=== PATIENT | male | born 1960 | race Caucasian/White ===

== ENCOUNTER → 2017-11-26 13:39 | Outpatient (POV) | payer BC, SELFPAY | PROVIDERS: Family Provider Family Medicine; PCP Family Medicine; Visit Provider Physician Assistant | DX: Z00.00 Encounter for general adult medical examination without abnormal findings (principal) ==

== ENCOUNTER → 2018-01-15 12:41 | Outpatient (CLI) | payer BC, SELFPAY ==
--- NOTE | 2018-01-15 12:56 | MR_ITS ---
MR knee RT wo con HISTORY: Acute pain of the right knee with buckling and with swelling ITS.REASON: ACUTE PAIN OF RIGHT KNEE ORDERING PHYSICIAN: Jim Snyder MD PATIENT AGE: 57 years COMPARISON: None TECHNIQUE: Standard multiplanar multiecho sequences are performed without contrast. FINDINGS: The cruciate ligaments and collateral ligaments are intact. Quadriceps tendon appears intact. There is some increased T1 and T2 signal within the patellar tendon consistent with tendinopathy/tendinosis. The central aspect of the posterior horn of medial meniscus is not identified in its normal location. What appears to represent part of the meniscus is noted centrally with a catheter between this part of meniscus and the remaining meniscus consistent with a complete longitudinal tear with meniscal displacement. Also be a small horizontal tear involving the body of the lateral meniscus There is intense increased T2 signal involving the proximal aspect of the medial tibial condyle subarticular region with a couple of linear areas of decreased intensity this patient's for bone bruise with nondisplaced impaction type fracture of the tibial plateau. There are moderate to severe osteoarthritic changes involving all 3 compartments with decrease in the joint spaces and osteophyte formation. There is mild lateral patellar subluxation. Patellar cartilage is thinned. There is a well-circumscribed of cortical 19 x 10 mm cystic lesion involving the distal femoral shaft could be due to cortical defect. Plain films suggested. Small knee joint effusion and there is mild amount of soft tissue edema about the knee. IMPRESSION: 1. Complex tear involves posterior horn of the medial meniscus suggesting a complete longitudinal tear with distraction of the meniscal fragments with the central aspect of the meniscus at the interspinous region of the proximal tibia 2. Nondisplaced horizontal tear involves the body of the lateral meniscus. 3. Bone bruise with minimal impaction involving the medial tibial condyle. 4. Tricompartmental osteoarthritis with knee joint effusion. 5. 19 x 10 mm cystic lesion of the distal femoral shaft anteriorly. Plain film correlation recommended
== END ==
PROVIDERS: Family Provider Family Medicine; PCP Family Medicine; Visit Provider Family Medicine
DX: M25.561 Pain in right knee (principal); M25.461 Effusion, right knee
CPT/HCPCS: 73721

== ENCOUNTER → 2018-01-28 14:36 | Outpatient (POV) | payer BC, SELFPAY | PROVIDERS: Visit Provider Physician Assistant | DX: Z00.00 Encounter for general adult medical examination without abnormal findings (principal) ==

== ENCOUNTER → 2018-04-04 14:31 | Outpatient (CLI) | payer BC, SELFPAY ==
[2018-04-04 17:34] LABS: Anion Gap 13.7 mEq/L (5-15); Blood Urea Nitrogen 29 mg/dL (7-18); Carbon Dioxide 27 mmol/L (21.0-32.0); Chloride 107 mmol/L (98-107); Creatinine,Serum 1.69 mg/dL (0.70-1.30); Estimated Glomerular Filt Rate 42 ml/min (>60); GFR (African American) 51 ML/MIN (>60); Glucose 81 mg/dL (74-106); Potassium 4.7 mmoL/L (3.5-5.1); Sodium 143 mmol/L (136-145)
== END ==
PROVIDERS: Visit Provider Internal Medicine Endocrinology, Diabetes & Metabolism
DX: L03.115 Cellulitis of right lower limb (principal); E11.9 Type 2 diabetes mellitus without complications; E11.29 Type 2 diabetes mellitus with other diabetic kidney complication; E78.2 Mixed hyperlipidemia; I10 Essential (primary) hypertension; Z79.4 Long term (current) use of insulin
CPT/HCPCS: 36415; 80048

== ENCOUNTER → 2018-06-20 09:46 | Outpatient (CLI) | payer BC, SELFPAY ==
[2018-06-20 11:30] LABS: Prostate Specific Ag, Diagnost 0.77 ng/mL (0.0-4.0)
== END ==
PROVIDERS: Visit Provider Urology
DX: Z12.5 Encounter for screening for malignant neoplasm of prostate (principal); N40.0 Benign prostatic hyperplasia without lower urinary tract symptoms
CPT/HCPCS: 36415; 84153

== ENCOUNTER → 2018-10-16 17:25 | Outpatient (CLI) | payer BC, SELFPAY | PROVIDERS: Visit Provider Podiatrist | DX: L60.8 Other nail disorders (principal); L03.031 Cellulitis of right toe; S91.209A Unspecified open wound of unspecified toe(s) with damage to nail, initial encounter | CPT/HCPCS: 87070; 87077; 87102; 87186; 87205; 87206; 87220 ==

== ENCOUNTER 2018-12-11 13:00 | Outpatient (RCR) | payer BC, SELFPAY ==
--- NOTE | 2018-10-02 10:56 | HMH.PTOPWND ---
Rehab Outpt Wound Evaluation Rehab OP Wound Evaluation Start: 10/02/18 10:51 Freq: Status: Active Protocol: Document 10/02/18 10:51 AB (Rec: 10/02/18 10:56 PHOBRENT [id number]) Electronically Signed By Van Duran, PT 10/02/18 10:51 Subjective/History History History Pt is 58 yowm who presents with c/o increased edema in gerald LE, Right > Left, x ~ 1 yr . He reports insidious onset of symptoms, but his edema was made worse after suffering a stress reaction in his right proximal tibia ~ 9 mos ago. He reports no c/o palpation tendernes, numbness, or tingling and only mild pain. He has hx of DM-II, HL. Lymphedema Eval Classification of Lymphedema Secondary Lymphedema Yes Stemmer's sign Stemmer's Sign no Stage of Lymphedema Lymphedema stages Stage I (Pitting edema, reduces w/ elevation, no fibrosis) Skin Changes Dry Skin Yes Redness Yes Discoloration of Skin Yes Pain Scale Pain Scale (0-10) 2 Affected Extremities Areas Affected by Lymphedema/Edema Right Lower Extremity Left Lower Extremity Manual Lymphatic Drainage Treatment Area MLD Treatment Area Right Lower Extremity Left Lower Extremity Wound Problems/Impairments Impairments Problems/Impairmments Impaired Walking Impaired Standing Increased Edema Lymphedema Present Wound Care Needs Subjective C/O Pain Impaired Self Care/Self Management Prognosis Rehab Potential Good Clinical Impression Consistent with Diagnosis Yes Short Term Goals Number of Weeks 4 Decrease Subjective C/O Pain Yes: 1/10 Patient to Understand Lymphedema Yes Treatment and Exercises Decrease Girth Measurments by (cm) Yes: by 5 cm Nursing Home Goals Number of Weeks 8 Decrease Subjective C/O Pain Yes: 0/10 Patient to be Ind w/ HEP Yes Patient to Adhere Lymphedema Precautions Yes Decrease Girth Measurments by (cm) Yes: by 15 cm Outpatient Therapy Plan of Care Treatment Plan May Include Therapeutic Exercise Including Home Yes Exercise Program Manual Therapy Techniques Yes
--- NOTE | 2018-11-19 14:42 | HMH.RHREAS ---
Rehab Reassessment Rehab OP Re-assessment Start: 11/19/18 14:37 Freq: Status: Active Protocol: Document 11/19/18 14:37 AB (Rec: 11/19/18 14:41 AB [id number]) Electronically Signed By Van Duran, PT 11/19/18 14:37 Rehab Re-assessment Subjective Subjective Pt reports no pain in gerald LE now, with less heaviness and improved ALD's. Objective Objective Notes Circumferential measurements: Right LE: -14.6 cm, Left LE: - 15.4 cm. Pain: 0/10. Assessment Progress Assessment Progressing as Expected Assessment Notes Much improved edema and pain. Patient goals met ST,2,3 LT Goals Not Met LT,3,4 Revised Goals none Plan Plan Continue per initial POC. Frequency of Therapy 2x/wk Duration of therapy 8 wks Time and Billing Re-Eval Time 15 Re-Eval Billing Units 1 PHYSICIAN CERTIFICATION: I certify the specified therapy services for Bill Dunn are required, authorized, and reviewed every 30 days.
== END 2018-12-11 13:35 | disposition home or self-care (01) ==
LOC: PT 13:00
PROVIDERS: Visit Provider Family Medicine
DX: I87.2 Venous insufficiency (chronic) (peripheral) (principal)
CPT/HCPCS: 97140; 97162; 97164; 97760

== ENCOUNTER → 2019-03-03 16:03 | Outpatient (CLI) | payer BC, SELFPAY ==
--- NOTE | 2019-03-03 16:32 | XR_ITS ---
XR chest 2V HISTORY: ITS.REASON: SEPSIS DUE TO UNSPECIFIED ORGANISM ORDERING PHYSICIAN: Ale Serna MD PATIENT AGE: 58 years Technique: PA and lateral chest COMPARISON: PA and lateral chest October 09, 2017 FINDINGS: Patchy vague low-density infiltrate left lung base and left mid lung, involving left lower lobe. Where there is also a normal subtle patchy infiltrate at the right lung base is well. This involves right lower lobe... And possibly minimal involvement at RML ( versus lingula) on lateral view. The right upper lung is clear. Heart is normal in size. Loyda and mediastinal structures satisfactory. No pleural effusion. No pneumothorax. Stable appearance T-spine. No acute findings. Anterior marginal osteophytes and degenerative changes throughout the T-spine. Ribs intact. Normal pulmonary vascularity. -----IMPRESSION:------- Bilateral infiltrates Low-density Patchy LLL infiltrate most evident left lung base extending towards left midlung. Suspect minimal patchy infiltrate right infrahilar region and right base as well ( involving mainly the right lower lobe possibly possible minimal RML involvement.)
== END ==
PROVIDERS: PCP Family Medicine; Visit Provider Emergency Medicine
DX: A41.9 Sepsis, unspecified organism (principal)
CPT/HCPCS: 36415; 71046; 83605; 87040

== ENCOUNTER → 2019-06-26 09:46 | Outpatient (CLI) | payer BC, SELFPAY ==
[2019-06-26 11:13] LABS: Prostate Specific Ag Screen 0.7 ng/mL (0.0-4.0)
== END ==
PROVIDERS: Visit Provider Urology
DX: R97.20 Elevated prostate specific antigen [PSA] (principal)
CPT/HCPCS: 36415; G0103

== ENCOUNTER → 2020-03-15 10:14 | Outpatient (CLI) | payer BC, SELFPAY ==
--- NOTE | 2020-03-15 10:23 | XR_ITS ---
PROCEDURE: XR RIBS RT MIN 3V W CXR1V CLINICAL INDICATION: RT SIDE CHEST PAIN Sided chest pain COMPARISON: CXR CHEST(2 VIEWS-NOT PORTABLE) from 10/09/2017 FINDINGS: Frontal view of the chest shows unremarkable cardiovascular structures. There is some patchy infiltrate in the right infrahilar region in the area of the right middle lobe. Multiple views of the right ribs shows no fracture, lytic, or blastic IMPRESSION: Change. Patchy infiltrate in the right middle lobe. Negative right ribs Dictated by: Corey Hdez MD 03/15/2020 13:46 Electronically signed by Corey Hdez MD in [place] 03/15/2020 13:46
== END ==
PROVIDERS: PCP Family Medicine; Visit Provider Family Medicine
DX: R07.9 Chest pain, unspecified (principal)
CPT/HCPCS: 71101

== ENCOUNTER → 2020-04-07 14:50 | Outpatient (CLI) | payer BC, SELFPAY ==
--- NOTE | 2020-04-07 14:56 | XR_ITS ---
PROCEDURE: XR CHEST CHP 1V CLINICAL HISTORY: COUGH,SOB COMPARISON: CXR CHEST(2 VIEWS-NOT PORTABLE) from 10/09/2017 XR RIBS RT MIN 3V W CXR1V from 03/15/2020 FINDINGS: The cardiomediastinal silhouette and pulmonary vascularity are within normal limits. The lungs are clear without infiltrates, suspicious nodules, or pleural effusions. No acute bony abnormalities. IMPRESSION: No acute findings. Dictated by: Corey Hdez MD 04/07/2020 15:57 Electronically signed by Corey Hdez MD in [place] 04/07/2020 15:57
[2020-04-07 15:30] LABS: Basophils # 0.1 K/mm3 (0-0.2); Basophils % 0.9 % (0.1-2.0); Eosinophils # 0.4 K/mm3 (0.0-0.4); Eosinophils % 3.6 % (0.1-12.0); Hematocrit 34.3 % (42.0-52.0); Hemoglobin 11.2 g/dL (14.1-18.0); Lymphocytes # 1.3 K/mm3 (0.7-4.5); Lymphocytes % 12.6 % (10-50); Mean Corpuscular HGB Conc 32.6 g/dL (31.8-35.4); Mean Corpuscular Volume 92.2 fl (80-94); Mean Platelet Volume 8.8 fl (7.4-10.4); Monocytes # 0.8 K/mm3 (0.1-1.0); Monocytes % 8.2 % (1.7-9.3); Neutrophils # 7.7 K/mm3 (1.8-7.8); Neutrophils % 74.7 % (37.0-80.0); Platelet Count 216 K/mm3 (142-424); Red Blood Count 3.72 M/mm3 (4.60-6.20); Red Cell Distribution Width 14.2 % (11.5-17.5); White Blood Count 10.3 K/mm3 (4.8-10.8)
[2020-04-09 16:18] LABS: Covid-19 Nasal PCR Sendout Lex NOT DETECTED
== END ==
PROVIDERS: PCP Physician Assistant; Visit Provider Physician Assistant
DX: Z03.818 Encounter for observation for suspected exposure to other biological agents ruled out (principal); J06.9 Acute upper respiratory infection, unspecified; R05 Cough; R06.02 Shortness of breath; R50.9 Fever, unspecified; R52 Pain, unspecified
CPT/HCPCS: 36415; 71010; 85025; U0004

== ENCOUNTER → 2020-06-23 10:38 | Outpatient (CLI) | payer OTHER, SELFPAY ==
[2020-06-23 12:13] LABS: Alanine Aminotransferase 21 U/L (12-78); Albumin Level 4.1 g/dl (3.5-5.0); Albumin/Globulin Ratio 1.5 (1.1-1.8); Alkaline Phosphatase 104 U/L (38-126); Anion Gap 12.6 mEq/L (5-15); Aspartate Amino Transferase 20 U/L (17-59); Bilirubin,Total 0.6 mg/dl (0.2-1.3); Blood Urea Nitrogen 26 mg/dl (9-20); Calcium 9.7 mg/dl (8.4-10.2); Carbon Dioxide 28 mmol/L (22.0-30.0); Chloride 105 mmol/L (98-107); Estimated Glomerular Filt Rate 62 ml/min (>60); GFR (African American) 75 ML/MIN (>60); Globulin 2.8 g/dL (1.3-3.2); Glucose 122 mg/dl (74-100); Potassium 5.6 mmoL/L (3.5-5.1); Sodium 140 mmol/L (136-145); Total Protein,Serum 6.9 g/dl (6.3-8.2)
== END ==
PROVIDERS: Visit Provider Nurse Practitioner
DX: B35.1 Tinea unguium (principal)
CPT/HCPCS: 36415; 80053

== ENCOUNTER → 2020-07-05 14:40 | Outpatient (CLI) | payer OTHER, SELFPAY ==
[2020-07-05 16:25] LABS: Prostate Specific Ag Screen 0.7 ng/ml (0.0-4.0)
== END ==
PROVIDERS: Visit Provider Urology
DX: Z12.5 Encounter for screening for malignant neoplasm of prostate (principal)
CPT/HCPCS: 36415; G0103

== ENCOUNTER → 2020-09-22 10:29 | Outpatient (CLI) | payer OTHER, SELFPAY ==
[2020-09-22 13:11] LABS: Bilirubin,Unconjugated 0.3 mg/dL (0.0-1.1)
[2020-09-22 13:12] LABS: Alanine Aminotransferase 18 U/L (12-78); Albumin Level 4.1 g/dl (3.5-5.0); Alkaline Phosphatase 74 U/L (38-126); Aspartate Amino Transferase 20 U/L (17-59); Bilirubin,Direct 0.2 mg/dl (0.0-0.4); Bilirubin,Indirect 0.3 mg/dL (0.0-0.9); Bilirubin,Total 0.5 mg/dl (0.2-1.3)
== END ==
PROVIDERS: Visit Provider Nurse Practitioner
DX: B35.1 Tinea unguium (principal); Z79.899 Other long term (current) drug therapy
CPT/HCPCS: 36415; 80076

== ENCOUNTER 2020-11-03 16:00 | Outpatient (RCR) | payer OTHER, SELFPAY ==
--- NOTE | 2020-09-28 11:25 | HMH.PTOPEV ---
PT Outpatient Evaluation Rehab PT Outpatient Evaluation Start: 09/28/20 11:13 Freq: Status: Active Protocol: Document 09/28/20 11:13 LISA (Rec: 09/28/20 11:25 RASHADSMITA [id number]) Electronically Signed By Fredrick Jasso, PT 09/28/20 11:13 Outpatient Therapy Subjective History Subjective History Patient is a 60 year old male presenting to outpatient PT with reports of L shoulder pain of insidious onset starting approximately 6 months ago. No recent imaging to reports S&S consistent with RTC impingement syndrome. Comorbidities include hx of diabetes, HTN and HL. Chief Complaint Pain,Stiff Symptom Type Ache Symptoms Relieved By Rest/Positioning,Prescription Meds Symptoms Aggravated By Physical Activity,Lifting Prior Functional Limitations None Current Functional Limitations Reaching,Lifting,Housework, Dressing,Sleeping Symptom Description Constant but Variable Level of pain today (0-10) 2 Pain scale - at its best (0-10) 2 Pain scale - at its worst (0-10) 5 Shoulder/Elbow Eval Shoulder Objective Measurements Palpation Tenderness Shoulder Palpation Findings Tenderness Shoulder Palpation Overall Comment ACJ distal supraspinatus insertion 2/4 Posture Shoulder Posture Sitting Position (L) Forward,(R) Forward Shoulder Posture Standing Position (L) Forward,(R) Forward Scapula Posture Sitting Position (L) Protracted,(R) Protracted Scapular Posture Standing Position (L) Protracted,(R) Protracted Shoulder ROM Right Shoulder Abduction Active Range of 158 Motion (degrees) Shoulder Flexion Active Range of Motion 155 (degrees) Query Text: Shoulder External Rotation Active Range WNL of Motion (degrees) Shoulder Internal Rotation Active Range WNL of Motion (degrees) Left Shoulder Abduction Active Range of 110 Motion (degrees) Shoulder Flexion Active Range of Motion 98 (degrees) Query Text: Shoulder External Rotation Active Range 73 of Motion (degrees) Shoulder Internal Rotation Active Range 50 of Motion (degrees) Shoulder MMT Anterior Deltoid Strength Grade 4- Good- Shoulder Abduction Strength Grade 4- Good- Shoulder Extension Strength Grade 4 Good Shoulder Flexion Strength Grade 4- Good- Shoulder External Rotation Strength 3 Fair Grade Shoulder Internal
== END 2020-11-03 16:05 | disposition home or self-care (01) ==
LOC: PT 16:00
PROVIDERS: PCP Nurse Practitioner Family; Visit Provider Nurse Practitioner Family
DX: M25.512 Pain in left shoulder (principal)
CPT/HCPCS: 97010; 97014; 97033; 97110; 97163; 97164; G0283

== ENCOUNTER → 2020-11-15 15:02 | Outpatient (CLI) | payer OTHER, SELFPAY ==
--- NOTE | 2020-11-15 15:07 | XR_ITS ---
PROCEDURE: XR CHEST PORTABLE CLINICAL HISTORY: COVID TESTING COMPARISON: CR CXR CHEST(2 VIEWS-NOT PORTABLE) from 10/09/2017 CR XR RIBS RT MIN 3V W CXR1V from 03/15/2020 CR XR CHEST CHP 1V from 04/07/2020 FINDINGS: The cardiomediastinal silhouette and pulmonary vascularity are within normal limits. The lungs are clear without infiltrates, suspicious nodules, or pleural effusions. No acute bony abnormalities. IMPRESSION: No acute findings. Dictated by: Corey Hdez MD 11/15/2020 15:25 Corey Hdez MD in [place] 11/15/2020 15:25
[2020-11-15 15:43] LABS: Basophils % 0.4 % (0.1-2.0); Eosinophils # 0.1 K/mm3 (0.0-0.4); Eosinophils % 0.5 % (0.1-12.0); Hemoglobin 12.4 g/dL (14.1-18.0); Lymphocytes # 1.1 K/mm3 (0.7-4.5); Lymphocytes % 9.9 % (10-50); Mean Corpuscular HGB Conc 31.8 g/dL (31.8-35.4); Mean Corpuscular Hemoglobin 29.9 pg (27.0-31.2); Mean Corpuscular Volume 93.8 fl (80-94); Monocytes # 0.8 K/mm3 (0.1-1.0); Monocytes % 7.4 % (1.7-9.3); Neutrophils % 81.7 % (37.0-80.0); Platelet Count 258 K/mm3 (142-424); Red Blood Count 4.15 M/mm3 (4.60-6.20); White Blood Count 11.1 K/mm3 (4.8-10.8)
--- NOTE | 2020-11-16 11:14 | PC.NURSE ---
Contacted pt to come in tomorrow at 11am for bam infusion. Pharmacy notified of appt time
== END ==
PROVIDERS: PCP Family Medicine; Visit Provider Family Medicine
DX: Z20.828 Contact with and (suspected) exposure to other viral communicable diseases (principal); U07.1 COVID-19
CPT/HCPCS: 36415; 71045; 85025; U0003

== ENCOUNTER 2020-11-17 10:55 | Outpatient (CLI) | payer OTHER, SELFPAY ==
[2020-11-17] VITALS (9 sets, daily range): BP systolic 140–177; BP diastolic 54–76; PULSE 76–84; RESP 22; TEMP 36.9; O2SAT 95–97
== END 2020-11-17 14:02 | disposition home or self-care (01) ==
PROVIDERS: PCP Family Medicine; Visit Provider Family Medicine
DX: U07.1 COVID-19 (principal)
CPT/HCPCS: 96365

== ENCOUNTER 2020-11-23 11:28 | Inpatient (IN) | payer OTHER, SELFPAY ==
[2020-11-23] VITALS (20 sets, daily range): BP systolic 98–173; BP diastolic 56–84; PULSE 80–107; RESP 24–32; TEMP 36.6–38.2; O2SAT 92–99; BMI 51.6; BMI 49.9
--- NOTE | 2020-11-23 11:30 | ECG_ITS ---
APPROVED REPORT Exam: Resting ECG HR:112 bpm ECG Measurements Heart Rate 112 AXES ME 126 P 59 QRSd 134 QRS -11 QT 342 T 1 QTc 466 Conclusion Sinus tachycardia Right bundle branch block Minimal voltage criteria for LVH, may be normal variant Abnormal ECG Electronically signed by : Finn Nagel, 11/25/2020 19:32:58
--- NOTE | 2020-11-23 11:33 | HMH.EDGENADL ---
ED Disposition Clinical Impression: Septic shock, COVID-19 virus infection, Hyperglycemia, Acute kidney injury, Hyperkalemia Pneumonia Qualifiers: Pneumonia type: due to unspecified organism Laterality: right Lung location: unspecified part of lung Qualified Code(s): J18.9 - Pneumonia, unspecified organism Disposition: Admitted As Inpatient Condition on Discharge: Critical - Critical Care Critical Care Time: Yes Attestation: On , the high probability of a clinically significant, sudden or life threatening deterioration of the following system(s) required my full and direct attention, intervention and personal management. The time I documented below is in addition to time spent performing reported procedures but includes the following listed in this critical care notation. Total Critical Care Time: 45 Vital system(s) involved:: Metabolic Failure, Respiratory Failure, Renal Failure, Shock (Septic) My critical care processes included: Assessment & monitoring of V/S, Initial and Re-exams, Data Review/Interpretation, Coordinating Care, Medication Orders and management, Documentation Medical Decision Making - Mason Inquiry Pt receiving controlled substance: No Vital Signs: 11/23/20 11:28 11/23/20 12:28 11/23/20 12:36 Temperature 98.2 F Temperature Source Oral Pulse Rate Pulse Rate [Right] 107 H 94 H 104 H Respiratory Rate 30 H 28 H Blood Pressure Blood Pressure [Right Arm] 98/57 L 143/70 H 143/70 H Blood Pressure Mean [Right Arm] 70 94 94 Blood Pressure Source Blood Pressure Source [Right Arm] Automatic Cuff Automatic Cuff Automatic Cuff Blood Pressure Position Blood Pressure Position [Right Arm] Sitting Supine Sitting 02 Sat by Pulse Oximetry 97 97 98 Oxygen Delivery Method Vapotherm Vapotherm Vapotherm 11/23/20 12:58 11/23/20 13:21 11/23/20 13:30 Temperature Temperature Source Pulse Rate Pulse Rate [Right] 94 H 103 H 94 H Respiratory Rate 28 H Blood Pressure Blood Pressure [Right Arm] 151/72 H 134/74 134/64 Blood Pressure Mean [Right Arm] 98 94 87 Blood Pressure Source Blood Pressure Source [Right Arm] Automatic Cuff Automatic Cuff Automatic Cuff Blood Pressure Position Blood Pressure Position [Right Arm] Sitting Sitting Sitting 02 Sat by Pulse Oximetry 98 97 98 Oxygen Delivery Method Vapotherm Vapotherm Vapotherm 11/23/20 14:00 11/23/20 14:20 11/23/20 14:47 Temperature Temperature Source Pulse Rate Pulse Rate [Right] 99 H 92 H 90 Respiratory Rate 26 H Blood Pressure Blood Pressure [Right Arm] 131/67 131/67 124/58 L Blood Pressure Mean [Right Arm] 88 88 80 Blood Pressure Source Blood Pressure Source [Right Arm] Automatic Cuff Automatic Cuff Automatic Cuff Blood Pressure Position Blood Pressure Position [Right Arm] Sitting Sitting Sitting 02 Sat by Pulse Oximetry 98 97 97 Oxygen Delivery Method Vapotherm Vapotherm Vapotherm 11/23/20 15:13 11/23/20 15:30 11/23/20 16:00 Temperature Temperature Source Pulse Rate Pulse Rate [Right] 88 89 88 Respiratory Rate 26 H Blood Pressure Blood Pressure [Right Arm] 146/61 H 139/66 130/56 L Blood Pressure Mean [Right Arm] 89 90 80 Blood Pressure Source Blood Pressure Source [Right Arm] Automatic Cuff Automatic Cuff Automatic Cuff Blood Pressure Position Blood Pressure Position [Right Arm] Sitting Sitting Sitting 02 Sat by Pulse Oximetry 99 92 L 98 Oxygen Delivery Method Vapotherm Vapotherm Vapotherm 11/23/20 16:29 11/23/20 16:30 11/23/20 17:18 Temperature 98 F Temperature Source Pulse Rate 87 Pulse Rate [Right] 87 88 Respiratory Rate 26 H 26 H Blood Pressure 152/72 H Blood Pressure [Right Arm] 145/71 H 145/71 H Blood Pressure Mean [Right Arm] 95 95 Blood Pressure Source Automatic Cuff Blood Pressure Source [Right Arm] Automatic Cuff Automatic Cuff Blood Pressure Position Sitting Blood Pressure Position [Right Arm] Sitting Sitting 02 Sat by Pulse Oximetry
--- NOTE | 2020-11-23 11:44 | XR_ITS ---
PROCEDURE: XR CHEST PORTABLE CLINICAL HISTORY: hypoxia COMPARISON: CR XR RIBS RT MIN 3V W CXR1V from 03/15/2020 CR XR CHEST CHP 1V from 04/07/2020 CR XR CHEST PORTABLE from 11/15/2020 FINDINGS: The cardiomediastinal silhouette and pulmonary vascularity are within normal limits. Diffuse increased density in the right upper and right lower lobe consistent with pneumonia. No large effusion evident. No acute bony abnormalities. IMPRESSION: Right upper and right lower lobe pneumonia Dictated by: Corey Hdez MD 11/23/2020 12:50 Corey Hdez MD in [place] 11/23/2020 12:50
--- NOTE | 2020-11-23 11:44 | PC.NURSE ---
pt sats continue to drop into 80's with venturi at 50%. Pt switched to vapotherm at 40lpm at 100%. Pt sats 98%. Pt behind closed doors and isolation procedures in place. Door closed and isolation sign in place
[2020-11-23 11:54] LABS: Basophils # 0.2 K/mm3 (0-0.2); Basophils % 0.5 % (0.1-2.0); Hematocrit 40.2 % (42.0-52.0); Hemoglobin 11.9 g/dL (14.1-18.0); Lymphocytes # 0.9 K/mm3 (0.7-4.5); Lymphocytes % 2.4 % (10-50); Mean Corpuscular HGB Conc 29.7 g/dL (31.8-35.4); Mean Corpuscular Hemoglobin 29.5 pg (27.0-31.2); Mean Corpuscular Volume 99.2 fl (80-94); Mean Platelet Volume 8.6 fl (7.4-10.4); Monocytes # 1.2 K/mm3 (0.1-1.0); Monocytes % 3.3 % (1.7-9.3); Neutrophils # 33.1 K/mm3 (1.8-7.8); Neutrophils % 93.7 % (37.0-80.0); Platelet Count 410 K/mm3 (142-424); Red Blood Count 4.05 M/mm3 (4.60-6.20); Red Cell Distribution Width 14.6 % (11.5-17.5); White Blood Count 35.3 K/mm3 (4.8-10.8)
[2020-11-23 11:55] LABS: Chloride 104 mmol/L (98-107)
[2020-11-23 11:56] LABS: Potassium 5.7 mmoL/L (3.5-5.1); Sodium 138 mmol/L (136-145)
[2020-11-23 11:58] LABS: Alanine Aminotransferase 63 U/L (12-78); Alkaline Phosphatase 127 U/L (38-126); Bilirubin,Total 0.7 mg/dl (0.2-1.3); Blood Urea Nitrogen 73 mg/dl (9-20); Creatinine Clearance Estimated 35 mL/min (50-200); Estimated Glomerular Filt Rate 29 ml/min (>60); GFR (African American) 35 ML/MIN (>60)
[2020-11-23 11:59] LABS: Albumin Level 3.9 g/dl (3.5-5.0); Anion Gap 24.7 mEq/L (5-15); Calcium 9.7 mg/dl (8.4-10.2); Carbon Dioxide 15 mmol/L (22.0-30.0); Globulin 3.9 g/dL (1.3-3.2); Total Protein,Serum 7.8 g/dl (6.3-8.2)
[2020-11-23 12:01] LABS: Glucose 474 mg/dl (74-100); MANUAL DIFFERENTIAL MANUAL DIFFERENTIAL (MANUAL DIFF)
[2020-11-23 12:02] LABS: Lactic Acid 7.9 mmol/L (0.7-2.1)
--- NOTE | 2020-11-23 12:04 | PC.NURSE ---
notified ER MD of critical glucose and lactic acid, no new orders at this, will continue to monitor
[2020-11-23 12:06] LABS: Aspartate Amino Transferase 51 U/L (17-59)
[2020-11-23 12:11] LABS: Troponin I 0.53 ng/ml (0.00-0.034)
--- NOTE | 2020-11-23 12:21 | PC.NURSE ---
Notified MD of critical troponin. Chest x-ray reviewed by MD and he ordered sepsis bolus at this time. 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
--- NOTE | 2020-11-23 12:26 | PC.NURSE ---
speaking with DR. Snyder at this time who is present in the ED
[2020-11-23 12:47] LABS: Microscopic, Urine URINE MICROSCOPIC (MICROSCOPIC)
--- NOTE | 2020-11-23 12:48 | PC.NURSE ---
Dr. Snyder at bedside
[2020-11-23 12:51] LABS: Appearance,Urine CLEAR (Clear); Bilirubin,Urine Negative (Negative); Blood, Urine TRACE-I (Negative); Color,Urine YELLOW (Yellow); Glucose,Urine (UA) Negative (Negative); Ketones,Urine Negative (Negative); Leukocyte Esterase,Urine Negative (Negative); Nitrate,Urine Negative (Negative); Protein,Urine 1+ (Negative); Specific Gravity, Urine 1.025 (1.005-1.030); Urobilinogen,Urine 0.2 EU/dl (0.2)
[2020-11-23 12:52] LABS: Acetone, Serum (Rapid) None Detected (None Detect)
[2020-11-23 12:57] LABS: Eosinophils % 2 % (0-3); Lymphocytes % 12 % (10-50); Monocytes % 3 % (2-9); Neutrophils % 81 % (42-76); Platelet Estimate Normal; RBC Morphology Normal; Total Cells Counted 100
--- NOTE | 2020-11-23 12:58 | PC.NURSE ---
Notified care management of admission
[2020-11-23 13:09] LABS: ABG PCO2 29.4 mmhg (35.0-45.0); ABG PH 7.33 mmol/L (7.35-7.45)
[2020-11-23 13:10] LABS: ABG Base Excess -9.5 mmol/L (-2.4-2.3); ABG HCO3 15.2 mmhg (22.0-26.0); ABG Oxygen Saturation 95 % (90-100); ABG PO2 84.3 mmhg (80-100); ABG TCO2 16.1 mmhg (23-27); Oxygen 100% VAPOTHERM %; Source Left Radial
[2020-11-23 13:11] LABS: Squamous Epithelial Cell,Urine Occasional #/hpf (0-5)
[2020-11-23 13:24] LABS: Procalcitonin 0.485 ng/mL (0.0-2.0)
--- NOTE | 2020-11-23 14:01 | PC.NURSE ---
per general warehouse worker pt will be going to room 263, states that room is currently still occupied but they are trying to move that pt.
--- NOTE | 2020-11-23 14:04 | HMH.HP ---
*Admission Date: 11/23/20 *Chief complaint: Syncope and COVID-19 *History of present illness: This 60-year-old white male diabetic was brought to the emergency room after a syncopal episode. He was seen in the office of [facility] on November 15, 2020 and tested positive for COVID-19. He received dexamethasone and Levaquin. He also received Bablinivimab by infusion as an outpatient. He has continued to be symptomatic with cough congestion and shortness of breath. The following is from the emergency room narrative: Patient is brought in by ambulance. They were called because he fell and needed assistance. He initially refused to be brought in, but was found to be markedly hypoxic and cyanotic on room air with a pulse ox in the 60s. He also reports to me that he might have been syncopal when he fell. He says he blacked out . He denies any injury. He was placed on nonrebreather oxygen and color improved. He is a type II diabetic and takes Actos 45 mg daily, Glucophage at 1000 mg twice daily, Amaryl 4 mg daily, Levemir FlexPen 40 units subcu once daily, and Trulicity 0.75 mg subcutaneously once a week. [facility] History Medical History: Reports:: Diabetes Mellitus Type 2, Hyperlipidemia, Hypertension, Kidney Stones (2003), Tuberculosis *Have you ever received a pneumonia vaccine?: Yes *Have you received a flu vaccine this season?: Yes Other Medical History: Reports: Sinus Problems Laterality Cases: Bilateral: Cataract, Tonsillectomy Other Surgeries: Yes: Colonoscopy Amputation: No Fractures: No - *Social History Smoking Status: Never smoker Alcohol Intake: never Substance Use Type: denies use *Occupational Status:: employed *Travel in the last 8 weeks: None Family Hx:: Diabetes, Cancer, Stroke, Heart Attack, Hyperlipidemia, Hypertension Review of Systems - Constitutional Reports fatigue, Reports weakness, Denies fever(s) - Eyes Denies change in vision - ENT Reports dizziness - *Cardiovascular Reports shortness of breath - *Respiratory Reports chest congestion, Reports cough, Reports shortness of breath - *Gastrointestinal Reports constipation - *Genitourinary Denies difficulty urinating - *Musculoskeletal Reports muscle weakness - *Neurologic Reports weakness, Denies localized weakness, Denies headache(s) Meds Home Medications Medication Instructions Recorded Confirmed Type atorvastatin 80 mg tablet 80 mg PO DAILY 90 Days tab 06/20/18 11/23/20 History ezetimibe 10 mg tablet 10 mg PO DAILY 90 Days tab 06/20/18 11/23/20 History glimepiride 4 mg tablet 4 mg PO DAILY 90 Days tab 06/20/18 11/23/20 History hydrochlorothiazide 12.5 mg tablet 12.5 mg PO DAILY 30 Days tab 06/20/18 11/23/20 History metformin 1,000 mg tablet 1,000 mg PO DAILY 90 Days tab 06/20/18 11/23/20 History metolazone 2.5 mg tablet 2.5 mg PO QODHS 30 Days tab 06/20/18 11/23/20 History pioglitazone 45 mg tablet 45 mg PO DAILY 90 Days tab 06/20/18 11/23/20 History quinapril 40 mg tablet 40 mg PO DAILY 90 Days tab 06/20/18 11/23/20 History tamsulosin 0.4 mg capsule 0.4 mg PO DAILY 90 Days #90 06/20/18 11/23/20 History aspirin 81 mg tablet,delayed 81 mg PO DAILY 10/16/18 11/23/20 History release dulaglutide 1.5 mg/0.5 mL 1.5 mg SUB-Q WEEKLY 90 Days ml 04/01/20 11/23/20 History subcutaneous pen injector fluticasone propionate 50 50 mcg INTRANASAL DAILY 04/01/20 11/23/20 History mcg/actuation nasal spray,suspension insulin detemir U-100 100 unit/mL 55 unit SUB-Q DAILY 89 Days ml 04/01/20 11/23/20 History (3 mL) subcutaneous pen albuterol sulfate 90 mcg/actuation 90 g INHALATION DAILY 06/23/20 11/23/20 History aerosol inhaler levoFLOXacin [Levaquin 500mg 500 mg PO DAILY 11/17/20 11/23/20 History tab] terbinafine HCL [Terbinafine HCl] 250 mg PO DAILY 11/17/20 11/23/20 History Naproxen [Naproxen 500mg tab] 500 mg PO BID 11/23/20 11/23/20 History dexAMETHasone [Decadron] 6 mg PO DAILY 11/23/20 11/23/20 H
--- NOTE | 2020-11-23 15:00 | PC.NURSE ---
Called to check status of bed and they advised they were cleaning the room at this time
--- NOTE | 2020-11-23 15:14 | PC.NURSE ---
Pt sleeping at this time. Breathing has eased. waiting on bed in [facility].
--- NOTE | 2020-11-23 15:18 | PC.NURSE ---
Called to bedside by ER staff. Pt on Non-rebreather SPO2 100%, per Dr. Dupree wean O2 to maintain <92%. Placed pt on NC 5 LPM, SPO2 85%. Placed Pt on Venti mask 50%, SPO2 88%. Placed Pt on Vapotherm 40L 100%, SPO2 97%. ABG attempt unsuccessful Left radial artery prepped and cleaned, Allens test acceptable, no sample obtained, pressure held, no bleeding, pressure bandage applied. Called Front Desk Receptionist for next attempt.
[2020-11-23 15:51] LABS: Reflex Lactic Add Lactic Reflex
--- NOTE | 2020-11-23 17:40 | PC.NURSE ---
pt just arrived to the floor
--- NOTE | 2020-11-23 17:49 | PC.NURSE ---
notified by lab that they need a lactic on patient, lactic collected and lab notified
--- NOTE | 2020-11-23 19:01 | PC.NURSE ---
Elsa aware of Dr John ahuja
[2020-11-23 19:55] LABS: Reflex Lactic (2 hrs) Add Lactic Reflex
[2020-11-23 20:26] LABS: POC Glucose,Bedside 346 (70-110)
[2020-11-23 21:01] LABS: Lactic Acid Follow up (RFLX 2) 1.4 mmol/L (0.7-2.1)
[2020-11-24] VITALS (15 sets, daily range): BP systolic 135–199; BP diastolic 73–90; PULSE 70–92; RESP 18–32; TEMP 36.5–37.2; O2SAT 85–96; BMI 50.1; BMI 49.8
--- NOTE | 2020-11-24 04:58 | PC.NURSE ---
pt has slept through most of shift. no complaints voiced. el draining clear yellow urine. pt temp was elevated at beginning of shift and prn Tylenol given. iv patent and infusing per order. vapotherm currently at 40L and 100% FIO2. o2 sat are 97% at this time. call light in reach. will continue to monitor
[2020-11-24 05:52] LABS: POC Glucose,Bedside 168 (70-110)
[2020-11-24 06:32] LABS: Basophils # 0.1 K/mm3 (0-0.2); Basophils % 0.2 % (0.1-2.0); Eosinophils % 0.1 % (0.1-12.0); Hematocrit 33.8 % (42.0-52.0); Lymphocytes # 0.7 K/mm3 (0.7-4.5); Lymphocytes % 2.4 % (10-50); Mean Corpuscular HGB Conc 30.8 g/dL (31.8-35.4); Mean Corpuscular Hemoglobin 30.3 pg (27.0-31.2); Mean Corpuscular Volume 98.3 fl (80-94); Mean Platelet Volume 9.2 fl (7.4-10.4); Monocytes # 0.8 K/mm3 (0.1-1.0); Monocytes % 2.8 % (1.7-9.3); Neutrophils # 27.4 K/mm3 (1.8-7.8); Neutrophils % 94.5 % (37.0-80.0); Platelet Count 301 K/mm3 (142-424); Red Blood Count 3.44 M/mm3 (4.60-6.20); Red Cell Distribution Width 14.7 % (11.5-17.5)
[2020-11-24 06:43] LABS: POC Glucose,Bedside 403 (70-110)
[2020-11-24 06:47] LABS: Anion Gap 13.7 mEq/L (5-15); Blood Urea Nitrogen 73 mg/dl (9-20); Carbon Dioxide 22 mmol/L (22.0-30.0); Chloride 109 mmol/L (98-107); Creatinine Clearance Estimated 51 mL/min (50-200); Estimated Glomerular Filt Rate 44 ml/min (>60); GFR (African American) 54 ML/MIN (>60); Glucose 184 mg/dl (74-100); Potassium 5.7 mmoL/L (3.5-5.1); Sodium 139 mmol/L (136-145)
[2020-11-24 07:02] LABS: Calcium 8.7 mg/dl (8.4-10.2)
[2020-11-24 07:07] LABS: MANUAL DIFFERENTIAL MANUAL DIFFERENTIAL (MANUAL DIFF)
--- NOTE | 2020-11-24 07:56 | HMH.ACPN2 ---
Internal Medicine - PN: Subj *Date: 11/24/20 *Time: 07:56 Interval history: Patient states he is doing okay. Nurses state that his O2 sats are stable on the Vapotherm at 100%. Per nursing notes he slept through most of the night. He continues with a Malik catheter to bedside drainage. Laboratory data this morning: white blood cell count was 29,000; blood chemistries show sodium of 139 potassium of 5.7. BUN is 73 and creatinine is 1.6. He continues on Zithromax and Rocephin. He is also receiving remdesivir IV fluids are at 100 an hour. Exam Vital signs and Labs for Last 24 Hours: Temp Pulse Resp BP Pulse Ox 98.7 F 70 27 H 158/75 H 97 11/24/20 06:00 11/24/20 06:00 11/24/20 06:00 11/24/20 06:00 11/23/20 22:00 Laboratory Results - last 24 hr 11/23/20 11:35: WBC 35.3 H*, RBC 4.05 L, Hgb 11.9 L, Hct 40.2 L, MCV 99.2 H, MCH 29.5, MCHC 29.7 L, RDW 14.6, Plt Count 410, MPV 8.6, Neut % (Auto) 93.7 H, Lymph % (Auto) 2.4 L, [facility] % (Auto) 3.3, Eos % (Auto) 0.0 L, Baso % (Auto) 0.5, Neut # (Auto) 33.1 H, Lymph # (Auto) 0.9, [facility] # (Auto) 1.2 H, Eos # (Auto) 0.0, Baso # (Auto) 0.2, Total Counted 100, Neutrophils % (Manual) 81 H, Lymphocytes % (Manual) 12, Monocytes % (Manual) 3, Eosinophils % (Manual) 2, Basophils % (Manual) 2.0 H, Platelet Estimate Normal, RBC Morphology Normal 11/23/20 11:35: Sodium 138, Potassium 5.7 H, Chloride 104, Carbon Dioxide 15 L, Anion Gap 24.7 H, BUN 73 H, Creatinine 2.30 H, Estimated Creat Clear 35, Estimated GFR 29 L, Est GFR ( Amer) 35 L, Glucose 474 H*, Calcium 9.7, Total Bilirubin 0.7, AST 51, ALT 63, Alkaline Phosphatase 127 H, Troponin I 0.53 H, Total Protein 7.8, Albumin 3.9, Globulin 3.9 H, Albumin/Globulin Ratio 1.0 L 11/23/20 11:35: Lactate 7.9 H 11/23/20 11:35: Procalcitonin 0.485 11/23/20 11:35: Acetone Level None detected 11/23/20 11:44: Specimen Source Cancelled, O2 % Cancelled, ABG pH Cancelled, ABG pCO2 Cancelled, ABG pO2 Cancelled, ABG HCO3 Cancelled, ABG Total CO2 Cancelled, ABG O2 Saturation Cancelled, ABG Base Excess Cancelled, Corey Test Cancelled, Vent Rate Cancelled, Tidal Volume Cancelled, PEEP Cancelled 11/23/20 12:15: Specimen Source Left radial, O2 % 100% vapotherm, ABG pH 7.33 L, ABG pCO2 29.4 L, ABG pO2 84.3, ABG HCO3 15.2 L, ABG Total CO2 16.1 L, ABG O2 Saturation 95, ABG Base Excess -9.5 L 11/23/20 12:25: Urine Color Yellow, Urine Appearance Clear, Urine pH 5.0, Ur Specific [place] 1.025, Urine Protein 1+, Urine Glucose (UA) Negative, Urine Ketones Negative, Urine Blood Trace-i, Urine Nitrate Negative, Urine Bilirubin Negative, Urine Urobilinogen 0.2, Ur Leukocyte Esterase Negative, Urine RBC 3-5, Urine WBC 3-5, Ur Squamous Epith Cells Occasional 11/23/20 17:45: Lactate 4.0 H 11/23/20 18:54: POC Glucose 403 H* 11/23/20 20:00: Lactate 1.4 11/23/20 20:12: POC Glucose 346 H* 11/24/20 05:15: POC Glucose 168 H 11/24/20 05:55: WBC 29.0 H*, RBC 3.44 L, Hct 33.8 L, MCV 98.3 H, MCH 30.3, MCHC 30.8 L, RDW 14.7, Plt Count 301 D, MPV 9.2, Neut % (Auto) 94.5 H, Lymph % (Auto) 2.4 L, [facility] % (Auto) 2.8, Eos % (Auto) 0.1, Baso % (Auto) 0.2, Neut # (Auto) 27.4 H, Lymph # (Auto) 0.7, [facility] # (Auto) 0.8, Eos # (Auto) 0.0, Baso # (Auto) 0.1 11/24/20 05:55: Sodium 139, Potassium 5.7 H, Chloride 109 H, Carbon Dioxide 22 D, Anion Gap 13.7, BUN 73 H, Creatinine 1.60 H D, Estimated Creat Clear 51, Estimated GFR 44 L, Est GFR ( Amer) 54 L D, Glucose 184 H D, Calcium 8.7 D I & O for Last 24 hours: Intake & Output 11/21/20 11/22/20 11/23/20 11/24/20 11:59 11:59 11:59 11:59 Intake Total 1376 / 1376 Output Total 1450 / 1450 Balance -74 / -74 Weight 360 lb 349 lb 5 oz - Constitutional no acute distress Comments: Awakened for exam. He states he is comfortable. - *Routine Respiratory Exam Present: rhonchi (Bilateral) - *Routine Cardiovascular Exam Present: RRR - *Routine Abdominal Exam Present: soft, normoactive bowel sounds, tenderness - *Routine Exam Comm
[2020-11-24 09:01] LABS: Lymphocytes % 5 % (10-50); Monocytes % 4 % (2-9); Neutrophils % 91 % (42-76); Platelet Estimate Normal; RBC Morphology Normal; Total Cells Counted 100
[2020-11-24 10:00] LABS: Hemoglobin 10.4 g/dL (14.1-18.0)
[2020-11-24 12:09] LABS: POC Glucose,Bedside 209 (70-110)
--- NOTE | 2020-11-24 12:26 | HMH.PULMCON ---
*Admission Date: 11/23/20 *Reason for consult:: Acute hypoxic respiratory failure, COVID-19 pneumonia *History of present illness: Mr. Wright is a 60-year-old obese male with history of diabetes, no prior respiratory complaints recently tested positive for COVID-19 pneumonia and received dexamethasone and levofloxacin as an outpatient basis presented with worsening respiratory failure along with cough and productive phlegm and pulmonary was called for further management. [facility] History Medical History: Reports:: Diabetes Mellitus Type 2, Hyperlipidemia, Hypertension, Kidney Stones (2003), Tuberculosis *Have you ever received a pneumonia vaccine?: Yes *Have you received a flu vaccine this season?: Yes Other Medical History: Reports: Sinus Problems Laterality Cases: Bilateral: Cataract, Tonsillectomy Other Surgeries: Yes: No Previous Surgery, Colonoscopy Amputation: No Fractures: No - *Social History Smoking Status: Never smoker Alcohol Intake: never Substance Use Type: denies use *Occupational Status:: retired Housing: house Household Members: none *Travel in the last 8 weeks: None Family Hx:: Diabetes, Cancer, Stroke, Heart Attack, Hyperlipidemia, Hypertension ROS - Review of Systems Review of systems:: pertinent systems reviewed and negative unless documented below - Cons Reports anorexia, Reports body ache(s), Reports chills, Reports fever(s) - Card Reports shortness of breath, Reports leg swelling - Resp Respiratory: Reports chest congestion, Reports cough, Reports dyspnea, Reports dyspnea on exertion, Reports excessive phlegm production, Denies coughing up blood, Denies pain on inspiration, Denies pain with cough, Reports cough with sputum production - GI Gastrointestingal: Reports: system reviewed and no additional complaints, except as docu Meds Home Medications Medication Instructions Recorded Confirmed Type atorvastatin 80 mg tablet 80 mg PO DAILY 90 Days tab 06/20/18 11/23/20 History ezetimibe 10 mg tablet 10 mg PO DAILY 90 Days tab 06/20/18 11/23/20 History glimepiride 4 mg tablet 4 mg PO DAILY 90 Days tab 06/20/18 11/23/20 History hydrochlorothiazide 12.5 mg tablet 12.5 mg PO DAILY 30 Days tab 06/20/18 11/23/20 History metformin 1,000 mg tablet 1,000 mg PO DAILY 90 Days tab 06/20/18 11/23/20 History metolazone 2.5 mg tablet 2.5 mg PO QODHS 30 Days tab 06/20/18 11/23/20 History pioglitazone 45 mg tablet 45 mg PO DAILY 90 Days tab 06/20/18 11/23/20 History quinapril 40 mg tablet 40 mg PO DAILY 90 Days tab 06/20/18 11/23/20 History tamsulosin 0.4 mg capsule 0.4 mg PO DAILY 90 Days #90 06/20/18 11/23/20 History aspirin 81 mg tablet,delayed 81 mg PO DAILY 10/16/18 11/23/20 History release dulaglutide 1.5 mg/0.5 mL 1.5 mg SUB-Q WEEKLY 90 Days ml 04/01/20 11/23/20 History subcutaneous pen injector fluticasone propionate 50 50 mcg INTRANASAL DAILY 04/01/20 11/23/20 History mcg/actuation nasal spray,suspension insulin detemir U-100 100 unit/mL 55 unit SUB-Q DAILY 89 Days ml 04/01/20 11/23/20 History (3 mL) subcutaneous pen albuterol sulfate 90 mcg/actuation 90 g INHALATION DAILY 06/23/20 11/23/20 History aerosol inhaler levoFLOXacin [Levaquin 500mg 500 mg PO DAILY 11/17/20 11/23/20 History tab] terbinafine HCL [Terbinafine HCl] 250 mg PO DAILY 11/17/20 11/23/20 History Naproxen [Naproxen 500mg tab] 500 mg PO BID 11/23/20 11/23/20 History dexAMETHasone [Decadron] 6 mg PO DAILY 11/23/20 11/23/20 History Allergies Allergy/AdvReac Type Severity Reaction Status Date / Time No Known Allergies Allergy Verified 09/22/20 08:59 Exam - Constitutional Comment:: Patient appears to be in mild respiratory distress. On high flow nasal cannula at 40 L 100% - HENMT Exam HENMT: normocephalic, atraumatic - Eye Exam Eyes:: eyelids normal, normal conjunctiva - Neck Exam Neck:: thyroid normal, no lymphadenopathy - Respiratory Exam Respiratory:: able to speak in complete
--- NOTE | 2020-11-24 12:31 | HMH.PHAVTE ---
[facility] Pharmacy VTE Monitoring - Patient Demographics Admission date: 11/23/20 Report Date: 11/24/20 Time: 12:31 Allergies/Adverse Reactions: Patient Allergies No Known Allergies Allergy (Verified 09/22/20 08:59) Height: 1.78 m Weight: 158.445 kg Patient Problems: Current Active Problems COVID-19 (Acute) Pneumonia involving right lung (Acute) Morbid obesity (Acute) Sepsis (Acute) Sepsis associated hypotension (Acute) History of tuberculosis (Acute) Septic shock (Acute) Pneumonia (Acute) COVID-19 virus infection (Acute) Hyperglycemia (Acute) Acute kidney injury (Acute) Hyperkalemia (Acute) Edema of lower extremity (Acute) - VTE Risk Labs: VTE Related Lab Results Hgb 10.4 g/dL (14.1-18.0) L D 11/24/20 05:55 Hct 33.8 % (42.0-52.0) L 11/24/20 05:55 Plt Count 301 K/mm3 (142-424) D 11/24/20 05:55 BUN 73 mg/dl (9-20) H 11/24/20 05:55 Creatinine 1.60 mg/dl (0.66-1.25) H D 11/24/20 05:55 Estimated Creat Clear 51 mL/min (50-200) 11/24/20 05:55 Was VTE Risk Assessment Performed: Yes VTE Score: 5 VTE Risk Level: Low Risk - Prophylaxis VTE Prophylaxis Ordered?: Yes Types of VTE Prophylaxis: TEDS Knee High, Pharmacological Location of Applied Device: Bilateral Lower Extremeties Pharmacologic Type: Enoxaparin
--- NOTE | 2020-11-24 13:35 | ECG_ITS ---
APPROVED REPORT Exam: Resting ECG HR:155 bpm ECG Measurements Heart Rate 155 AXES QRSd 132 QRS -7 QT 294 T -11 QTc 472 Conclusion Atrial fibrillation with rapid ventricular response Right bundle branch block Minimal voltage criteria for LVH, may be normal variant Abnormal ECG Electronically signed by : Finn Nagel, 11/25/2020 19:28:08
--- NOTE | 2020-11-24 13:37 | CA_ITS ---
APPROVED REPORT EXAM: Comprehensive 2D, Doppler, and color-flow Echocardiogram Financial Compliance Officer: Cecy Bucio RT(R) Ht: 5 ft 10 in Wt: 349lbs BSA: 2.64 BP: 134/64 mmHg Indications: Syncope, HTN, DM, Hyperlipidemia, resp failure, Hx of TB, sepsis, AFIB, COVID, pneumonia, morbid obesity 2D Dimensions LVOT 2.71 cm (M/F) 1.5-2.5 M-Mode Dimensions RVDd 3.18 cm (0.9-2.6) LVDd 3.59 cm (3.5-5.7) LVDs 2.62 cm (3.5-5.7) IVSd 1.54 cm (0.6-1.1) PWd 1.28 cm (0.6-1.1) EF (Teich) 53.60% FS 27.00% EDV (Teich) 54.10 mL ESV (Teich) 25.10 mL Left Ventricle Technically very difficult study, endocardial surfaces are poorly visualized. Left atrium is mildly enlarged, left ventricle is normal size, mild concentric left ventricular hypertrophy, visually estimated ejection fraction of 50% with no obvious regional wall motion abnormality, diastolic parameters are inconclusive. Right Ventricle Right atrium and right ventricle are mildly enlarged with normal contractility. Aortic Valve Aortic valve is thickened and calcified without significant aortic stenosis or aortic insufficiency. Mitral Valve Mitral valve grossly normal, there is mild mitral regurgitation. Tricuspid Valve Tricuspid valve is grossly normal, there is mild tricuspid regurgitation, tricuspid regurgitation jet velocity is inadequate for calculation of the right ventricular systolic pressure. Pulmonic Valve Pulmonic valve is poorly visualized. Great Vessels Aortic root is normal size. Pericardium No significant pericardial effusion noted. Conclusion 1. Mildly enlarged left atrium, normal left ventricular size, mild concentric left ventricular hypertrophy, visually estimated ejection fraction 50% with no regional wall motion abnormality, diastolic parameters are inconclusive. Technically difficult study, endocardial surfaces are very poorly visualized. 2. Mildly enlarged right ventricle with normal contractility. 3. Thickened and calcified aortic valve without aortic stenosis or aortic insufficiency. 4. Mild mitral and tricuspid regurgitation. 5. No significant pericardial effusion noted. Electronically signed by : Kyle Guerra, 11/26/2020 10:47:21
--- NOTE | 2020-11-24 13:54 | HMH.CNCARD ---
History of Present Illness Consult date: 11/24/20 Requesting physician: Jim Snyder Consult reason: atrial fibrillation Chief complaint: soa History of present illness: This is a 60-year-old white gentleman who presented to the emergency department after a syncopal episode and was found to be markedly hypoxic and cyanotic with sats in the 60s. The patient was admitted to the hospital due to COVID-19 and is currently being treated for this by his primary care provider and pulmonology. The patient did go into atrial fibrillation with RVR today. He denies any palpitations or racing of the heart. He denies any chest pain or pressure. He states that he is short of breath at rest and worse with exertion. He states that this does improve with rest but does not really go away. It is associated with tachypnea and a nonproductive cough. He states he is unable to lie flat because of the shortness of breath. He denies any fever, chills, nausea, vomiting, diarrhea. The patient is currently on a Vapotherm mask and satting around 85%. He denies a history of ID or CAD. He does have hypertension and diabetes. [facility] History I have reviewed the patient's past medical history: Yes Medical History: Reports:: Atrial Fibrillation, Diabetes Mellitus Type 2, Hyperlipidemia, Hypertension, Kidney Stones (2003), Tuberculosis *Have you ever received a pneumonia vaccine?: Yes *Have you received a flu vaccine this season?: Yes Other Medical History: Reports: Sinus Problems Laterality Cases: Bilateral: Cataract, Tonsillectomy Other Surgeries: Yes: No Previous Surgery, Colonoscopy Amputation: No Fractures: No - *Social History Smoking Status: Never smoker Alcohol Intake: never Substance Use Type: denies use *Occupational Status:: retired Housing: house Household Members: none *Travel in the last 8 weeks: None Family Hx:: Diabetes, Cancer, Stroke, Heart Attack, Hyperlipidemia, Hypertension Meds Home Medications Medication Instructions Recorded Confirmed Type atorvastatin 80 mg tablet 80 mg PO DAILY 90 Days tab 06/20/18 11/23/20 History ezetimibe 10 mg tablet 10 mg PO DAILY 90 Days tab 06/20/18 11/23/20 History glimepiride 4 mg tablet 4 mg PO DAILY 90 Days tab 06/20/18 11/23/20 History hydrochlorothiazide 12.5 mg tablet 12.5 mg PO DAILY 30 Days tab 06/20/18 11/23/20 History metformin 1,000 mg tablet 1,000 mg PO DAILY 90 Days tab 06/20/18 11/23/20 History metolazone 2.5 mg tablet 2.5 mg PO QODHS 30 Days tab 06/20/18 11/23/20 History pioglitazone 45 mg tablet 45 mg PO DAILY 90 Days tab 06/20/18 11/23/20 History quinapril 40 mg tablet 40 mg PO DAILY 90 Days tab 06/20/18 11/23/20 History tamsulosin 0.4 mg capsule 0.4 mg PO DAILY 90 Days #90 06/20/18 11/23/20 History aspirin 81 mg tablet,delayed 81 mg PO DAILY 10/16/18 11/23/20 History release dulaglutide 1.5 mg/0.5 mL 1.5 mg SUB-Q WEEKLY 90 Days ml 04/01/20 11/23/20 History subcutaneous pen injector fluticasone propionate 50 50 mcg INTRANASAL DAILY 04/01/20 11/23/20 History mcg/actuation nasal spray,suspension insulin detemir U-100 100 unit/mL 55 unit SUB-Q DAILY 89 Days ml 04/01/20 11/23/20 History (3 mL) subcutaneous pen albuterol sulfate 90 mcg/actuation 90 g INHALATION DAILY 06/23/20 11/23/20 History aerosol inhaler levoFLOXacin [Levaquin 500mg 500 mg PO DAILY 11/17/20 11/23/20 History tab] terbinafine HCL [Terbinafine HCl] 250 mg PO DAILY 11/17/20 11/23/20 History Naproxen [Naproxen 500mg tab] 500 mg PO BID 11/23/20 11/23/20 History dexAMETHasone [Decadron] 6 mg PO DAILY 11/23/20 11/23/20 History Allergies Allergy/AdvReac Type Severity Reaction Status Date / Time No Known Allergies Allergy Verified 09/22/20 08:59 Exam Vital signs and Labs for Last 24 Hours: Temp Pulse Resp BP Pulse Ox 97.9 F 80 30 H 186/80 H 96 11/24/20 11:31 11/24/20 12:00 11/24/20 11:31 11/24/20 11:31 11/24/20 11:31 Laboratory Results - last 24 hr 11/23/20 17:
--- NOTE | 2020-11-24 15:23 | HMH.PHAINT ---
MEDICATION RECONCILIATION COMPLETED ON PATIENT USING LIST FROM [facility] AND EXTERNAL FILL HISTORY FROM PHARMACY. -LORNA COLLADOD
--- NOTE | 2020-11-24 16:27 | ECG_ITS ---
APPROVED REPORT Exam: Resting ECG HR:81 bpm ECG Measurements Heart Rate 81 AXES NJ 124 P 49 QRSd 134 QRS -15 QT 370 T -17 QTc 429 Conclusion Normal sinus rhythm Right bundle branch block Minimal voltage criteria for LVH, may be normal variant Abnormal ECG Electronically signed by : Finn Nagel, 11/25/2020 19:28:01
[2020-11-24 16:34] LABS: Creatine Kinase 146 U/L (55-170)
--- NOTE | 2020-11-24 16:35 | PC.NURSE ---
Notified Dr Christiansen that pt had converted to NSR; Verbal order of 180mg PO cardizem now then turn off gtt 1hr later. Read back and verified
[2020-11-24 16:44] LABS: CKMB Relative Index 2.9 U/L (0-4.0); Creatine Kinase MB 4.3 ng/ml (0.0-2.03)
[2020-11-24 16:48] LABS: Troponin I 0.21 ng/ml (0.00-0.034)
--- NOTE | 2020-11-24 17:07 | P.PN_ITS ---
Internal Medicine - PN: Subj *Date: 11/24/20 *Time: 17:07 Interval history: I was contacted about 1330 that the patient had gone into A-fib. Cardiazem drip was ordered and Cardiology was consulted. See that consultation note. The patient converted to NSR about 1630. Exam Vital signs and Labs for Last 24 Hours: Temp Pulse Resp BP Pulse Ox 97.7 F 81 22 160/75 H 91 L 11/24/20 16:00 11/24/20 16:00 11/24/20 16:00 11/24/20 16:00 11/24/20 16:00 Laboratory Results - last 24 hr 11/23/20 17:45: Lactate 4.0 H 11/23/20 18:54: POC Glucose 403 H* 11/23/20 20:00: Lactate 1.4 11/23/20 20:12: POC Glucose 346 H* 11/24/20 05:15: POC Glucose 168 H 11/24/20 05:55: WBC 29.0 H*, RBC 3.44 L, Hgb 10.4 L D, Hct 33.8 L, MCV 98.3 H, MCH 30.3, MCHC 30.8 L, RDW 14.7, Plt Count 301 D, MPV 9.2, Neut % (Auto) 94.5 H , Lymph % (Auto) 2.4 L, [place] % (Auto) 2.8, Eos % (Auto) 0.1, Baso % (Auto) 0.2, Neut # (Auto) 27.4 H, Lymph # (Auto) 0.7, [place] # (Auto) 0.8, Eos # (Auto) 0.0, Baso # (Auto) 0.1, Total Counted 100, Neutrophils % (Manual) 91 H, Lymphocytes % (Manual) 5 L, Monocytes % (Manual) 4, Platelet Estimate Normal, RBC Morphology Normal 11/24/20 05:55: Sodium 139, Potassium 5.7 H, Chloride 109 H, Carbon Dioxide 22 D, Anion Gap 13.7, BUN 73 H, Creatinine 1.60 H D, Estimated Creat Clear 51, Estimated GFR 44 L, Est GFR ( Amer) 54 L D, Glucose 184 H D, Calcium 8.7 D 11/24/20 11:31: POC Glucose 209 H 11/24/20 16:10: Total Creatine Kinase 146, CK-MB (CK-2) 4.3 H, CK-MB (CK-2) Rel Index 2.9, Troponin I 0.21 H I & O for Last 24 hours: Intake & Output 11/22/20 11/23/20 11/24/20 11/25/20 11:59 11:59 11:59 11:59 Intake Total 1496 / 1496 834 / 834 Output Total 1450 / 1450 950 / 950 Balance 46 / 46 -116 / -116 Weight 360 lb 349 lb 5 oz 348 lb 5.286 oz Assessment and Plan (1) Shortness of breath Status: Acute Category: Medical Code(s): R06.02 - Shortness of breath (2) Pneumonia involving right lung Status: Acute Category: Medical Code(s): J18.9 - Pneumonia, unspecified organism (3) COVID-19 Status: Acute Category: Medical Code(s): U07.1 - COVID-19 (4) Morbid obesity Status: Acute Category: Medical Code(s): E66.01 - Morbid (severe) obesity due to excess calories (5) Sepsis Status: Acute Category: Medical Code(s): A41.9 - Sepsis, unspecified organism (6) Atrial fibrillation with RVR Status: Acute Category: Medical Code(s): I48.91 - Unspecified atrial fibrillation (7) Edema of lower extremity Status: Acute Category: Medical Code(s): R60.0 - Localized edema (8) History of tuberculosis Status: Acute Category: Medical Code(s): Z86.11 - Personal history of tuberculosis (9) HTN (hypertension) Status: Chronic Category: Medical Code(s): I10 - Essential (primary) hypertension (10) HLD (hyperlipidemia) Status: Chronic Category: Medical Code(s): E78.5 - Hyperlipidemia, unspecified - Assessment and plan all Dx Assessment and Plan for all problems:: Will continue on p.o. Diltiazem.
[2020-11-24 17:16] LABS: POC Glucose,Bedside 218 (70-110)
--- NOTE | 2020-11-24 18:16 | PC.NURSE ---
PO cardizem given at 1705, gtt turned off at 1805 VS as documented in intervention
--- NOTE | 2020-11-24 18:18 | PC.NURSE ---
Pt alert and oriented x4. Lungs diminished t/o. He remains on vapotherm 40L 100% fio2. Pt went into afib w/rvr earlier this shift. HR was 140's-160's. He was placed on a cardizem gtt, he converted (see previous note) and was given a PO dose and gtt turned off 1 hr later. HR currently 80's, NSR. He had a bath and was shaved today per S Morenita RN and Daphney Caceres RN. Pt reported feeling much better afterwards. Appetite is poor with patient eating 25% of breakfast and supper, refusing lunch. Malik is to bedside draining clear straw colored urine. He is currently resting in bed with his eyes closed. Albert report to oncoming nurse.
[2020-11-24 21:55] LABS: POC Glucose,Bedside 357 (70-110)
[2020-11-25] VITALS (21 sets, daily range): BP systolic 97–224; BP diastolic 49–112; PULSE 70–166; RESP 24–36; TEMP 36.4–37.8; O2SAT 86–92; BMI 49.3
--- NOTE | 2020-11-25 03:35 | PC.NURSE ---
Pt is A&Ox4 and has ambulated to [facility] with staff assist x1. Pt has c/o SOB intermittently and feeling uncomfortable at times. Pt reports he has not slept well this night. Continues on Vapotherm @ 40LPM and 100% FiO2 with sats 87-91. Pt has removed O2 to blow nose on occasion and during cough pt has desat to upper 70s but is quick to return to upper 80s. RR tachypneic at 25-28 and accessory muscles used in breathing. Diminished R upper lobe, wheezing t/o, and earlier this shift some crackles was noted on lung auscultation. HTN continues, SBP 140s-160s. Pt has sustained in SR with BBB on telemetry. HR 70s-low 90s. +2 Non pitting edema to BLE. Skin is coarse and dry to BLE. Lovenox for VTE. Malik cath in place for strict I/Os and is draining clear, ylw urine per gravity with 650ml output thus far. Call light within reach and non-skids socks place.
[2020-11-25 06:48] LABS: POC Glucose,Bedside 221 (70-110)
--- NOTE | 2020-11-25 07:59 | P.PN_ITS ---
Subjective Date: 11/25/20 Time: 07:59 Principal diagnosis: COVID pneumonia, A. fib with RVR Interval history: 60 yo WM in bed. Tachypnea noted with hypoxemia into the low 70's intermittently on O2 via NC after coughing spell Sinus rhythm on telemetry Exam Vital signs and Labs for Last 24 Hours: Temp Pulse Resp BP Pulse Ox 98.5 F 80 28 H 159/68 H 87 L 11/25/20 04:00 11/25/20 04:00 11/25/20 04:00 11/25/20 04:00 11/25/20 04:00 Laboratory Results - last 24 hr 11/24/20 05:55: Hgb 10.4 L D, Total Counted 100, Neutrophils % (Manual) 91 H, Lymphocytes % (Manual) 5 L, Monocytes % (Manual) 4, Platelet Estimate Normal, RBC Morphology Normal 11/24/20 11:31: POC Glucose 209 H 11/24/20 16:10: Total Creatine Kinase 146, CK-MB (CK-2) 4.3 H, CK-MB (CK-2) Rel Index 2.9, Troponin I 0.21 H 11/24/20 17:00: POC Glucose 218 H 11/24/20 20:54: POC Glucose 357 H* 11/25/20 06:42: POC Glucose 221 H I & O for Last 24 hours: Intake & Output 11/22/20 11/23/20 11/24/20 11/25/20 11:59 11:59 11:59 11:59 Intake Total 1496 / 1496 1764 / 1764 Output Total 1450 / 1450 2450 / 2450 Balance 46 / 46 -686 / -686 Weight 360 lb 349 lb 5 oz 344 lb 4.8 oz Narrative: Not examined due to COVID infection. Progress Note: A&P (1) Shortness of breath Status: Acute (2) Pneumonia involving right lung Status: Acute (3) COVID-19 Status: Acute (4) Morbid obesity Status: Acute (5) Sepsis Status: Acute (6) Atrial fibrillation with RVR Status: Acute Assessment and plan: On PO dilitiazem during my visit in ICU and maintaining NSR After leaving I received a call that he had developed rapid heart rate up to 200 bpm PO diltiazem to be stopped and IV diltiazem will be restarted. On lovenox due to elevated CHADS-VASC score. (7) Edema of lower extremity Status: Acute (8) History of tuberculosis Status: Acute (9) HTN (hypertension) Status: Chronic (10) HLD (hyperlipidemia) Status: Chronic (11) Hypoxemia Status: Acute (12) CKD (chronic kidney disease) stage 3, GFR 30-59 ml/min Status: Acute (13) Hyperkalemia Status: Acute (14) Elevated troponin Status: Acute Assessment and plan: [place] secondary to respiratory illness Echo pending Assessment and Plan for All Diagnoses:: As above Will follow with you
--- NOTE | 2020-11-25 08:00 | PC.NURSE ---
Cardizem 10mg IVP bolus given at this time and gtt started at 10mg/hr per Joy Reno. Dose & Med verified w/ Neptali Escalante RN. 100% NRB mas placed over Vapotherm d/t desat and maintaining low 80s.
--- NOTE | 2020-11-25 08:09 | PC.NURSE ---
At 0542 pt HR increased to max of 202 and sustained tachycardic for 12 seconds and immediately came down danitza to NSR with BBB with rate of 80s. Joy Reno was notified at 0710a and strip printed for MD review.
--- NOTE | 2020-11-25 08:16 | PC.NURSE ---
@ 0748 pt HR increased to 200 and returned to NSR then danitza up to 190s and sustaining 140-170s. Jim Reno was notified and NOs placed for Cardizem 10mg IVP bolus and to restart Cardizem gtt. Pt is A&Ox3 and reports feeling lie his heart is racing and also states he just blew out blood . Pt had a slight nose bleed and small clot from nares.
[2020-11-25 10:07] LABS: Basophils # 0.1 K/mm3 (0-0.2); Basophils % 0.4 % (0.1-2.0); Hemoglobin 11.4 g/dL (14.1-18.0); Lymphocytes # 0.6 K/mm3 (0.7-4.5); Lymphocytes % 2.1 % (10-50); Mean Corpuscular HGB Conc 31.8 g/dL (31.8-35.4); Mean Corpuscular Hemoglobin 29.7 pg (27.0-31.2); Mean Corpuscular Volume 93.4 fl (80-94); Mean Platelet Volume 9.1 fl (7.4-10.4); Monocytes # 0.8 K/mm3 (0.1-1.0); Neutrophils # 25.4 K/mm3 (1.8-7.8); Neutrophils % 94.5 % (37.0-80.0); Platelet Count 333 K/mm3 (142-424); Red Blood Count 3.86 M/mm3 (4.60-6.20); Red Cell Distribution Width 14.6 % (11.5-17.5); White Blood Count 26.9 K/mm3 (4.8-10.8)
[2020-11-25 10:10] LABS: MANUAL DIFFERENTIAL MANUAL DIFFERENTIAL (MANUAL DIFF)
[2020-11-25 10:12] LABS: Magnesium 2.8 mg/dl (1.6-2.3)
--- NOTE | 2020-11-25 10:25 | XR_ITS ---
PROCEDURE: XR CHEST PORTABLE CLINICAL HISTORY: post intubation COMPARISON: CR XR CHEST CHP 1V from 04/07/2020 CR XR CHEST PORTABLE from 11/15/2020 CR XR CHEST PORTABLE from 11/23/2020 FINDINGS: 10:28 a.m.. Endotracheal tube has been placed. The tip is in good position 4.4 cm above the lucila. Right upper and right lower lobe pneumonia once again noted not significantly changed. Possible infiltrate also in the left upper lobe unchanged. There are low lung volumes with unremarkable heart size. IMPRESSION: Endotracheal tube in good position. No change bilateral pneumonia Dictated by: Corey Hdez MD 11/25/2020 10:49 Corey Hdez MD in [place] 11/25/2020 10:49
[2020-11-25 10:43] LABS: Thyroid Stimulating Hormone 0.34 uIU/mL (0.465-4.68)
[2020-11-25 10:49] LABS: Free T4 (Free Thyroxine) 1.68 ng/dl (0.78-2.19)
--- NOTE | 2020-11-25 10:52 | HMH.ACPN2 ---
Internal Medicine - PN: Subj *Date: 11/25/20 *Time: 10:52 Interval history: The patient's condition has deteriorated overnight and especially this morning. Oxygen saturations can drop down into the 70s and his heart rate has accelerated even into the 200 range. He was seen by Dr. Lopze and it was felt that the patient should be intubated and placed on ventilator. He was also seen by cardiology and Cardizem drip was reinstituted. He was intubated about half hour ago. He is on the ventilator now. His heart rate remains in the 150s and appears atrial fibrillation. The patient's family is aware of his dire condition. Dr. Lopez has spoken with the patient's nephew Wes. Dr. Snyder will be speaking to Richard Dunn shortly. Exam Vital signs and Labs for Last 24 Hours: Temp Pulse Resp BP Pulse Ox 99.0 F 156 H 25 H 204/109 H 86 L 11/25/20 10:00 11/25/20 10:00 11/25/20 10:00 11/25/20 10:00 11/25/20 10:00 Laboratory Results - last 24 hr 11/24/20 11:31: POC Glucose 209 H 11/24/20 16:10: Total Creatine Kinase 146, CK-MB (CK-2) 4.3 H, CK-MB (CK-2) Rel Index 2.9, Troponin I 0.21 H 11/24/20 17:00: POC Glucose 218 H 11/24/20 20:54: POC Glucose 357 H* 11/25/20 06:42: POC Glucose 221 H 11/25/20 09:46: Magnesium 2.8 H, TSH 0.34 L 11/25/20 09:46: Free T4 1.68 11/25/20 09:46: WBC 26.9 H*, RBC 3.86 L, Hgb 11.4 L, Hct 36.0 L, MCV 93.4, MCH 29.7, MCHC 31.8, RDW 14.6, Plt Count 333, MPV 9.1, Neut % (Auto) 94.5 H, Lymph % (Auto) 2.1 L, [place] % (Auto) 3.0, Eos % (Auto) 0.0 L, Baso % (Auto) 0.4, Neut # (Auto) 25.4 H, Lymph # (Auto) 0.6 L, [place] # (Auto) 0.8, Eos # (Auto) 0.0, Baso # (Auto) 0.1 I & O for Last 24 hours: Intake & Output 11/22/20 11/23/20 11/24/20 11/25/20 11:59 11:59 11:59 11:59 Intake Total 1496 / 1496 1764 / 1764 Output Total 1450 / 1450 2450 / 2450 Balance 46 / 46 -686 / -686 Weight 360 lb 349 lb 5 oz 344 lb 4.8 oz - Constitutional severe distress, morbidly obese - *Routine HEENT Exam Head: Present: normocephalic Eye: Present: PERRL - *Routine Respiratory Exam Present: decreased breath sounds, rhonchi, wheezes - *Routine Cardiovascular Exam Present: tachycardia - *Routine Abdominal Exam Present: soft, obese - *Routine Extremities Exam Present: edema - *Routine Neurological Exam Present: alert, oriented X3 (He seems to understand his situation.) Assessment and Plan (1) Respiratory failure Status: Acute Category: Medical Code(s): J96.90 - Respiratory failure, unspecified, unspecified whether with hypoxia or hypercapnia (2) COVID-19 Status: Acute Category: Medical Code(s): U07.1 - COVID-19 (3) Pneumonia involving right lung Status: Acute Category: Medical Code(s): J18.9 - Pneumonia, unspecified organism (4) Shortness of breath Status: Acute Category: Medical Code(s): R06.02 - Shortness of breath (5) Morbid obesity Status: Acute Category: Medical Code(s): E66.01 - Morbid (severe) obesity due to excess calories (6) Sepsis Status: Acute Category: Medical Code(s): A41.9 - Sepsis, unspecified organism (7) Atrial fibrillation with RVR Status: Acute Category: Medical Code(s): I48.91 - Unspecified atrial fibrillation (8) Edema of lower extremity Status: Acute Category: Medical Code(s): R60.0 - Localized edema (9) History of tuberculosis Status: Acute Category: Medical Code(s): Z86.11 - Personal history of tuberculosis (10) HTN (hypertension) Status: Chronic Category: Medical Code(s): I10 - Essential (primary) hypertension (11) HLD (hyperlipidemia) Status: Chronic Category: Medical Code(s): E78.5 - Hyperlipidemia, unspecified (12) Hypoxemia Status: Acute Category: Medical Code(s): R09.02 - Hypoxemia (13) CKD (chronic kidney disease) stage 3, GFR 30-59 ml/min Status: Acute Category: Medical Code(s): N18.30 - Chronic kidney disease, stage 3 unspecified (14) Hyperkalemia Status: Ac
[2020-11-25 11:02] LABS: Chloride 110 mmol/L (98-107); Potassium 4.4 mmoL/L (3.5-5.1); Sodium 140 mmol/L (136-145)
[2020-11-25 11:05] LABS: Alanine Aminotransferase 84 U/L (12-78); Albumin/Globulin Ratio 0.9 (1.1-1.8); Alkaline Phosphatase 113 U/L (38-126); Anion Gap 17.4 mEq/L (5-15); Aspartate Amino Transferase 84 U/L (17-59); Bilirubin,Total 0.5 mg/dl (0.2-1.3); Blood Urea Nitrogen 59 mg/dl (9-20); Calcium 8.7 mg/dl (8.4-10.2); Carbon Dioxide 17 mmol/L (22.0-30.0); Chol/HDL Ratio 5.5 (1-3.5); Cholesterol 93 mg/dl (140-200); Creatinine Clearance Estimated 58 mL/min (50-200); Estimated Glomerular Filt Rate 52 ml/min (>60); GFR (African American) 63 ML/MIN (>60); Globulin 3.3 g/dL (1.3-3.2); Glucose 217 mg/dl (74-100); HDL Cholesterol 17 mg/dl (40-60); Total Protein,Serum 6.3 g/dl (6.3-8.2); Triglycerides 166 mg/dl (30-150); VLDL Cholesterol 33 mg/dL (0-40)
[2020-11-25 11:13] LABS: Lymphocytes % 7 % (10-50); Monocytes % 1 % (2-9); Neutrophils % 88 % (42-76); Platelet Estimate Normal; RBC Morphology Normal; Total Cells Counted 100
[2020-11-25 11:15] LABS: Direct LDL Cholesterol 37.66 mg/dL (100-129)
--- NOTE | 2020-11-25 11:33 | XR_ITS ---
PROCEDURE: XR CHEST PORTABLE CLINICAL HISTORY: OG tube placement COMPARISON: CR XR CHEST PORTABLE from 11/15/2020 CR XR CHEST PORTABLE from 11/23/2020 CR XR CHEST PORTABLE from 11/25/2020 FINDINGS: Endotracheal tube tip is in good position 4.6 cm above the lucila. Orogastric tube tip is not visible on the film but is below the GE junction and at least in the body of the stomach. Consolidation noted in the right lower lobe right upper lobe and left lower lobe consistent with bilateral pneumonia slightly worse in the left lower lobe. No acute bony abnormalities. IMPRESSION: Endotracheal tube and orogastric tube in good position with bilateral pneumonia Dictated by: Corey Hdez MD 11/25/2020 13:52 Corey Hdez MD in [place] 11/25/2020 13:52
[2020-11-25 11:40] LABS: ABG Base Excess -11.1 mmol/L (-2.4-2.3); ABG HCO3 17.7 mmhg (22.0-26.0); ABG Oxygen Saturation 91 % (90-100); ABG PO2 74.4 mmhg (80-100); ABG TCO2 19.3 mmhg (23-27)
[2020-11-25 11:47] LABS: Oxygen 100 %; Tidal Volume 440
[2020-11-25 11:48] LABS: ABG PH 7.15 mmol/L (7.35-7.45); Allen's Test Patient Unable; PEEP 14; Source Right Radial; Vent Rate 18
[2020-11-25 11:49] LABS: ABG PCO2 51.5 mmhg (35.0-45.0)
--- NOTE | 2020-11-25 11:54 | P.PCN_ITS ---
[facility] Procedure Note Procedure Note:: Name of the procedure: Endotracheal intubation Reason for intubation: Acute hypoxic respiratory failure A time out was performed. My hands were washed immediately prior to the procedure. The patient was placed on a cardiac cath technician including continuous pulse oximetry. Rapid Sequence Intubation was conducted. The patient received 50 mg of Etomidate for induction and 100 mg of Rocoronium for adequate paralysis. Cricoid pressure was maintained from time induction agent was given to time of cuff balloon inflation. Using direct visualization with video laryngoscope and a size 7.5 endotracheal tube with stylet, the patient was intubated on the first attempt. The stylet was removed and cuff balloon was inflated. Appropriate endotracheal tube position was confirmed by direct visualization of vocal cord passage, CO2 colometric indicator and bilateral symmetric breath sounds. The tube was secured at 26 cm at the lips. Post intubation chest x-ray is pending at this time. Patient tolerated the procedure well. Estimated blood loss minimal
--- NOTE | 2020-11-25 11:55 | HMH.PULMPN ---
Internal Medicine - PN: Subj *Date: 11/25/20 *Time: 11:55 Interval history: Patient respiratory status gradually worsened since yesterday, this morning. High flow nasal cannula along with nonrebreather with saturations between 80 to 85%. Patient appears to be in severe respiratory distress. Exam - Constitutional Comment:: Patient in severe respiratory distress. - HENMT Exam HENMT: normocephalic, atraumatic - Eye Exam Eyes:: eyelids normal, normal conjunctiva - Neck Exam Neck:: thyroid normal, no lymphadenopathy - Respiratory Exam Comments: Patient appear to be in severe respiratory distress. Unable to talk in complete sentences. On high flow nasal cannula along with 100% nonrebreather with saturations between 80 to 85%. - Cardiovascular Exam Cardiac:: S1, S2 - GI Exam GI:: soft, obese - Skin Exam Skin: warm, no rash - Neurological Exam Neurological: alert, awake - Extremities Exam Extremities: no cyanosis, no clubbing, edema Assessment and Plan (1) Respiratory failure Status: Acute Category: Medical Code(s): J96.90 - Respiratory failure, unspecified, unspecified whether with hypoxia or hypercapnia (2) COVID-19 Status: Acute Category: Medical Code(s): U07.1 - COVID-19 (3) Pneumonia involving right lung Status: Acute Category: Medical Code(s): J18.9 - Pneumonia, unspecified organism (4) Shortness of breath Status: Acute Category: Medical Code(s): R06.02 - Shortness of breath (5) Morbid obesity Status: Acute Category: Medical Code(s): E66.01 - Morbid (severe) obesity due to excess calories (6) Sepsis Status: Acute Category: Medical Code(s): A41.9 - Sepsis, unspecified organism (7) Atrial fibrillation with RVR Status: Acute Category: Medical Code(s): I48.91 - Unspecified atrial fibrillation (8) Edema of lower extremity Status: Acute Category: Medical Code(s): R60.0 - Localized edema (9) History of tuberculosis Status: Acute Category: Medical Code(s): Z86.11 - Personal history of tuberculosis (10) HTN (hypertension) Status: Chronic Category: Medical Code(s): I10 - Essential (primary) hypertension (11) HLD (hyperlipidemia) Status: Chronic Category: Medical Code(s): E78.5 - Hyperlipidemia, unspecified (12) Hypoxemia Status: Acute Category: Medical Code(s): R09.02 - Hypoxemia (13) CKD (chronic kidney disease) stage 3, GFR 30-59 ml/min Status: Acute Category: Medical Code(s): N18.30 - Chronic kidney disease, stage 3 unspecified (14) Hyperkalemia Status: Acute Category: Medical Code(s): E87.5 - Hyperkalemia (15) Elevated troponin Status: Acute Category: Medical Code(s): R77.8 - Other specified abnormalities of plasma proteins - Assessment and plan all Dx Assessment and Plan for all problems:: #Acute hypoxic respiratory failure needing mechanical ventilation: #COVID-19 pneumonia: 60-year-old history of diabetes no prior respiratory complaints recent diagnosis cholecystectomy levofloxacin outpatient basis pending worsening respiratory failure cough and productive phlegm along with hypoxic respiratory failure needing high flow nasal cannula and was admitted to the isolation and pulmonary was called for further management. Admission chest x-ray chest x-ray diffuse right-sided pneumonia. Patient was initiated on ceftriaxone azithromycin along with remdesivir and dexamethasone for COVID-19 pneumonia. His ceftriaxone was also changed to cefepime as patient recently received a dose of levofloxacin as an outpatient prior to this admission when he was initially diagnosed with COVID-19 pneumonia Patient respiratory status gradually worsened since admission, this morning patient appeared to be in severe respiratory distress, unable to talk in complete sentences, on high flow nasal cannula 100% along with nonrebreather with only saturations around 80 to 85%. After extended discussion with the patient pa
--- NOTE | 2020-11-25 13:08 | DIET.NUTRFU ---
Addendum entered by Hattie Lancaster 11/26/20 16:58: Tube feeds initiated today, pt has tolerated well. 5# weight gain past 24h, BG ~270. No changes to nutritional care plan as stated in TF order. Will continue to monitor pt's tolerance advancement to alter as indicated. Addendum entered by Sabi Bhagat RDN, KATH 11/25/20 15:46: Nutrition consult has been received to initiate TF. Order entered to begin pt on Pulmocare at 20mL/hr and increase to goal rate of 72mL/hr pt to receive 100mL free water flushes with GRV checks q 6 hours. Will closely monitor TF tolerance and adjust fluids as needed. Original Note: Pt intubated, recommend initiating continuous tube feeding regimen upon MD order. Upon TF initiation order recommend the following regimen: Recommend initiating continuous tube feeding regimen of Pulmocare 1.5 at 20ml/hr and advance by 10ml/hr q 8hr as tolerated to goal rate of 72ml/hr. Pt currently recieving IVF fluids at 100ml/hr, meeting fluid needs. Recommend minimal water flushes of 60-120ml for tube irrigation. Will monitor IVF to adjust water flushes as needed within conservative needs. This regimen provides 2484kcal, 104g protein, 175g cho, 155g fat, and 1300ml free water. Pt is an obese diabetic at risk hyperglycemia and fluid overload, will monitor tolerance, fluid status, and BG to adjust regimen as indicated.
[2020-11-25 16:07] LABS: Lactic Acid 1.1 mmol/L (0.7-2.1)
[2020-11-25 17:04] LABS: ABG Base Excess -7.9 mmol/L (-2.4-2.3); ABG HCO3 18.1 mmhg (22.0-26.0); ABG Oxygen Saturation 93 % (90-100); ABG PCO2 35.3 mmhg (35.0-45.0); ABG PH 7.33 mmol/L (7.35-7.45); ABG PO2 69.5 mmhg (80-100); ABG TCO2 19.2 mmhg (23-27)
[2020-11-25 17:05] LABS: Allen's Test Patient Unable; Oxygen 100 %; PEEP 14; Source Right Radial; Tidal Volume 440; Vent Rate 22
[2020-11-25 18:03] LABS: POC Glucose,Bedside 294 (70-110)
--- NOTE | 2020-11-25 19:53 | PC.NURSE ---
1027-Patient intubated by Dr Lopez at this time, 7.5 ETT placed 25@lip midline, 16F OG tube placed 70@lip, confirmation of placement obtained via cxr, sedation with fentanyl and versed started at this time.
--- NOTE | 2020-11-25 20:01 | PC.NURSE ---
Shift Summary: Patient intubated this shift per Dr Lopez, remains intubated and sedated with fentanyl and versed. Remains on cardizem drip for rate control, 7.[address] 25@lip, 16F OG tube in place 70@lip, perrla, pupils 2+, HR reg, lungs diminished t/o with scattered coarse crackles, abd soft, active bowel sounds in all quads, FC patent and draining dark yellow urine with sediment, 2+ edema noted peripherally, peripheral pulses intact, vss at this time, will continue to monitor.
[2020-11-25 23:14] LABS: POC Glucose,Bedside 280 (70-110)
[2020-11-26] VITALS (34 sets, daily range): BP systolic 81–148; BP diastolic 44–79; PULSE 76–131; RESP 22–90; TEMP 37.3–38.7; O2SAT 88–95; BMI 50.1
--- NOTE | 2020-11-26 00:45 | PC.NURSE ---
refrained from bathing patient due to increased oxygen demand during activity. fio2 100%, peep of 14, rr 34
--- NOTE | 2020-11-26 05:13 | XR_ITS ---
PROCEDURE: XR CHEST PORTABLE CLINICAL HISTORY: resp failure Covid19 COMPARISON: No exams were available for comparison FINDINGS: Endotracheal tube tip is in good position at the T4 level. Nasogastric tube tip is not well delineated but is at least below the GE junction. There is diffuse bilateral pneumonia with some sparing of the left upper lobe. The pneumonia peers slightly worse. IMPRESSION: Endotracheal tube and nasogastric tube in good position. Slight worsening bilateral pneumonia Dictated by: Corey Hdez MD 11/26/2020 06:44 Corey Hdez MD in [place] 11/26/2020 06:44
[2020-11-26 06:05] LABS: ABG Base Excess -7.7 mmol/L (-2.4-2.3); ABG HCO3 18.4 mmhg (22.0-26.0); ABG Oxygen Saturation 93 % (90-100); ABG PCO2 36.5 mmhg (35.0-45.0); ABG PH 7.32 mmol/L (7.35-7.45); ABG PO2 71.9 mmhg (80-100); ABG TCO2 19.5 mmhg (23-27); Allen's Test Patient Unable; Oxygen 100 %; PEEP 14; Source Right Radial; Tidal Volume 440; Vent Rate 22
[2020-11-26 06:33] LABS: Alanine Aminotransferase 60 U/L (12-78); Albumin Level 2.9 g/dl (3.5-5.0); Albumin/Globulin Ratio 0.8 (1.1-1.8); Alkaline Phosphatase 104 U/L (38-126); Anion Gap 14.1 mEq/L (5-15); Aspartate Amino Transferase 41 U/L (17-59); Bilirubin,Total 0.4 mg/dl (0.2-1.3); Blood Urea Nitrogen 69 mg/dl (9-20); Calcium 8.4 mg/dl (8.4-10.2); Carbon Dioxide 20 mmol/L (22.0-30.0); Chloride 110 mmol/L (98-107); Creatinine Clearance Estimated 45 mL/min (50-200); Estimated Glomerular Filt Rate 39 ml/min (>60); GFR (African American) 47 ML/MIN (>60); Globulin 3.5 g/dL (1.3-3.2); Glucose 277 mg/dl (74-100); Potassium 5.1 mmoL/L (3.5-5.1); Sodium 139 mmol/L (136-145); Total Protein,Serum 6.4 g/dl (6.3-8.2)
[2020-11-26 06:56] LABS: POC Glucose,Bedside 272 (70-110)
--- NOTE | 2020-11-26 08:00 | PC.NURSE ---
gastric residual 0mL. Tubefeed rate increased to 40mL/hr from 30mL/hr. Goal is 72 mL/hr
--- NOTE | 2020-11-26 09:53 | HMH.PNCARD ---
Subjective Date: 11/26/20 Time: 09:53 Principal diagnosis: COVID pneumonia, A. fib with RVR Interval history: 60-year-old white male now sedated, intubated on the ventilator. Tachycardia proved with diltiazem and sedation/intubation/mechanical ventilation. Blood gas this morning showing improvement in acidotic state. Creatinine 1.8 this morning. Blood pressure systolic 120 to 140 mmHg Heart rate in the 90 bpm range Exam Vital signs and Labs for Last 24 Hours: Temp Pulse Resp BP Pulse Ox 101.7 F H 98 H 34 H 125/59 L 93 L 11/26/20 09:00 11/26/20 09:00 11/26/20 09:00 11/26/20 09:00 11/26/20 09:00 Laboratory Results - last 24 hr 11/25/20 09:46: Magnesium 2.8 H, TSH 0.34 L 11/25/20 09:46: Free T4 1.68 11/25/20 09:46: Sodium 140, Potassium 4.4 D, Chloride 110 H, Carbon Dioxide 17 L D, Anion Gap 17.4 H, BUN 59 H, Creatinine 1.40 H, Estimated Creat Clear 58, Estimated GFR 52 L, Est GFR ( Amer) 63, Glucose 217 H, Calcium 8.7, Total Bilirubin 0.5, AST 84 H D, ALT 84 H D, Alkaline Phosphatase 113, Total Protein 6.3, Albumin 3.0 L, Globulin 3.3 H, Albumin/Globulin Ratio 0.9 L 11/25/20 09:46: WBC 26.9 H*, RBC 3.86 L, Hgb 11.4 L, Hct 36.0 L, MCV 93.4, MCH 29.7, MCHC 31.8, RDW 14.6, Plt Count 333, MPV 9.1, Neut % (Auto) 94.5 H, Lymph % (Auto) 2.1 L, [place] % (Auto) 3.0, Eos % (Auto) 0.0 L, Baso % (Auto) 0.4, Neut # (Auto) 25.4 H, Lymph # (Auto) 0.6 L, [place] # (Auto) 0.8, Eos # (Auto) 0.0, Baso # (Auto) 0.1, Total Counted 100, Neutrophils % (Manual) 88 H, Band Neutrophils % 2.0, Lymphocytes % (Manual) 7 L, Monocytes % (Manual) 1 L, Metamyelocytes % 2.0 H, Platelet Estimate Normal, RBC Morphology Normal 11/25/20 09:46: Triglycerides 166 H, Cholesterol 93 L, LDL Cholesterol Direct 37.66 L, VLDL Cholesterol 33, HDL Cholesterol 17 L, Cholesterol/HDL Ratio 5.5 H 11/25/20 11:30: Specimen Source Right radial, O2 % 100, ABG pH 7.15 L*, ABG pCO2 51.5 H, ABG pO2 74.4 L, ABG HCO3 17.7 L, ABG Total CO2 19.3 L, ABG O2 Saturation 91, ABG Base Excess -11.1 L, Corey Test Patient unable, Vent Rate 18, Tidal Volume 440, PEEP 14 11/25/20 15:05: Lactate 1.1 11/25/20 16:43: Specimen Source Right radial, O2 % 100, ABG pH 7.33 L, ABG pCO2 35.3, ABG pO2 69.5 L, ABG HCO3 18.1 L, ABG Total CO2 19.2 L, ABG O2 Saturation 93, ABG Base Excess -7.9 L, Corey Test Patient unable, Vent Rate 22, Tidal Volume 440, PEEP 14 11/25/20 17:10: POC Glucose 294 H 11/25/20 23:06: POC Glucose 280 H 11/26/20 04:50: Sodium 139, Potassium 5.1, Chloride 110 H, Carbon Dioxide 20 L, Anion Gap 14.1, BUN 69 H, Creatinine 1.80 H D, Estimated Creat Clear 45, Estimated GFR 39 L, Est GFR ( Amer) 47 L D, Glucose 277 H D, Calcium 8.4, Total Bilirubin 0.4, AST 41 D, ALT 60 D, Alkaline Phosphatase 104, Total Protein 6.4, Albumin 2.9 L, Globulin 3.5 H, Albumin/Globulin Ratio 0.8 L 11/26/20 05:55: Specimen Source Right radial, O2 % 100, ABG pH 7.32 L, ABG pCO2 36.5, ABG pO2 71.9 L, ABG HCO3 18.4 L, ABG Total CO2 19.5 L, ABG O2 Saturation 93, ABG Base Excess -7.7 L, Corey Test Patient unable, Vent Rate 22, Tidal Volume 440, PEEP 14 11/26/20 06:27: POC Glucose 272 H I & O for Last 24 hours: Intake & Output 11/23/20 11/24/20 11/25/20 11/26/20 11:59 11:59 11:59 11:59 Intake Total 1496 / 1496 1764 / 1764 585.25 / 585.25 Output Total 1450 / 1450 2450 / 2450 1765 / 1765 Balance 46 / 46 -686 / -686 -1179.75 / -1179.75 Weight 360 lb 349 lb 5 oz 344 lb 2.265 oz 349 lb 12.8 oz Microbiology Reports for the Last 24 Hours: Microbiology 11/24/20 13:45 Nose - Nasal MRSA Culture - Final 11/23/20 11:35 Blood Blood Culture - Preliminary NO GROWTH AFTER 48 HOURS 11/23/20 11:35 Blood Blood Culture - Preliminary NO GROWTH AFTER 48 HOURS Narrative: Not examined due to Covid. Progress Note: A&P (1) Respiratory failure Status: Acute (2) COVID-19 Status: Acute (3) Pneumonia involving right lung Status: Acute (4)
--- NOTE | 2020-11-26 11:25 | HMH.ACPN2 ---
Internal Medicine - PN: Subj *Date: 11/26/20 *Time: 11:25 Interval history: The patient remains intubated and on mechanical ventilation. He is maintaining oxygen saturations above 90%. He has developed a fever. His chest x-ray shows slight worsening of his pneumonia. MRSA nasal swab was positive and pulmonology has recommended addition of vancomycin. This has been ordered. He is maintaining his urine output. Exam Vital signs and Labs for Last 24 Hours: Temp Pulse Resp BP Pulse Ox 101.0 F H 95 H 34 H 97/53 L 90 L 11/26/20 11:00 11/26/20 11:11 11/26/20 11:00 11/26/20 11:00 11/26/20 11:00 Laboratory Results - last 24 hr 11/25/20 11:30: Specimen Source Right radial, O2 % 100, ABG pH 7.15 L*, ABG pCO2 51.5 H, ABG pO2 74.4 L, ABG HCO3 17.7 L, ABG Total CO2 19.3 L, ABG O2 Saturation 91, ABG Base Excess -11.1 L, Corey Test Patient unable, Vent Rate 18, Tidal Volume 440, PEEP 14 11/25/20 15:05: Lactate 1.1 11/25/20 16:43: Specimen Source Right radial, O2 % 100, ABG pH 7.33 L, ABG pCO2 35.3, ABG pO2 69.5 L, ABG HCO3 18.1 L, ABG Total CO2 19.2 L, ABG O2 Saturation 93, ABG Base Excess -7.9 L, Corey Test Patient unable, Vent Rate 22, Tidal Volume 440, PEEP 14 11/25/20 17:10: POC Glucose 294 H 11/25/20 23:06: POC Glucose 280 H 11/26/20 04:50: Sodium 139, Potassium 5.1, Chloride 110 H, Carbon Dioxide 20 L, Anion Gap 14.1, BUN 69 H, Creatinine 1.80 H D, Estimated Creat Clear 45, Estimated GFR 39 L, Est GFR ( Amer) 47 L D, Glucose 277 H D, Calcium 8.4, Total Bilirubin 0.4, AST 41 D, ALT 60 D, Alkaline Phosphatase 104, Total Protein 6.4, Albumin 2.9 L, Globulin 3.5 H, Albumin/Globulin Ratio 0.8 L 11/26/20 05:55: Specimen Source Right radial, O2 % 100, ABG pH 7.32 L, ABG pCO2 36.5, ABG pO2 71.9 L, ABG HCO3 18.4 L, ABG Total CO2 19.5 L, ABG O2 Saturation 93, ABG Base Excess -7.7 L, Corey Test Patient unable, Vent Rate 22, Tidal Volume 440, PEEP 14 11/26/20 06:27: POC Glucose 272 H I & O for Last 24 hours: Intake & Output 11/23/20 11/24/20 11/25/20 11/26/20 11:59 11:59 11:59 11:59 Intake Total 1496 / 1496 1764 / 1764 585.25 / 585.25 Output Total 1450 / 1450 2450 / 2450 1795 / 1795 Balance 46 / 46 -686 / -686 -1209.75 / -1209.75 Weight 360 lb 349 lb 5 oz 344 lb 2.265 oz 349 lb 12.8 oz Microbiology Reports for the Last 24 Hours: Microbiology 11/24/20 13:45 Nose - Nasal MRSA Culture - Final 11/23/20 11:35 Blood Blood Culture - Preliminary NO GROWTH AFTER 48 HOURS 11/23/20 11:35 Blood Blood Culture - Preliminary NO GROWTH AFTER 48 HOURS - Constitutional obese (Sedated and on ventilator.) - Routine Chest/Breast/Axilla Exam Chest wall: Absent: tenderness - *Routine Respiratory Exam Present: decreased breath sounds (Markedly decreased at bases) - *Routine Cardiovascular Exam Present: RRR (Rate is controlled in the 90s.) - *Routine Abdominal Exam Present: obese. Absent: tenderness - *Routine Extremities Exam Present: edema Assessment and Plan (1) Respiratory failure Status: Acute Category: Medical Code(s): J96.90 - Respiratory failure, unspecified, unspecified whether with hypoxia or hypercapnia (2) COVID-19 Status: Acute Category: Medical Code(s): U07.1 - COVID-19 (3) Pneumonia involving right lung Status: Acute Category: Medical Code(s): J18.9 - Pneumonia, unspecified organism (4) Shortness of breath Status: Acute Category: Medical Code(s): R06.02 - Shortness of breath (5) Morbid obesity Status: Acute Category: Medical Code(s): E66.01 - Morbid (severe) obesity due to excess calories (6) Sepsis Status: Acute Category: Medical Code(s): A41.9 - Sepsis, unspecified organism (7) Atrial fibrillation with RVR Status: Acute Category: Medical Code(s): I48.91 - Unspecified atrial fibrillation (8) Edema of lower extremity Status: Acute Category: Medical Code(s): R60.0 - [place]
[2020-11-26 11:41] LABS: POC Glucose,Bedside 302 (70-110)
--- NOTE | 2020-11-26 12:00 | PC.NURSE ---
gastric residual 0mL. Tubefeed rate increased to 50mL/hr.
--- NOTE | 2020-11-26 12:16 | HMH.PHACONS ---
- Pharmacy Consult Date: 11/26/20 Time: 12:16 Referring provider: DR. BAEZ Reason for Consult:: VANCOMYCIN DOSING Allergies and ADEs:: Allergies Allergy/AdvReac Type Severity Reaction Status Date / Time No Known Allergies Allergy Verified 09/22/20 08:59 Home Medications:: Home Medications Medication Instructions Recorded Confirmed Type atorvastatin 80 mg tablet 80 mg PO HS 90 Days tab 06/20/18 11/24/20 History ezetimibe 10 mg tablet 10 mg PO DAILY 90 Days tab 06/20/18 11/23/20 History glimepiride 4 mg tablet 4 mg PO DAILY 90 Days tab 06/20/18 11/24/20 History hydrochlorothiazide 12.5 mg tablet 12.5 mg PO DAILY 30 Days tab 06/20/18 11/23/20 History metformin 1,000 mg tablet 1,000 mg PO BID 90 Days tab 06/20/18 11/24/20 History metolazone 2.5 mg tablet 2.5 mg PO Q48H 30 Days #15 tab 06/20/18 11/24/20 History quinapril 40 mg tablet 40 mg PO DAILY 90 Days tab 06/20/18 11/23/20 History tamsulosin 0.4 mg capsule 0.4 mg PO DAILY 90 Days #90 06/20/18 11/23/20 History aspirin 81 mg tablet,delayed 81 mg PO DAILY 10/16/18 11/23/20 History release dulaglutide 1.5 mg/0.5 mL 1.5 mg SQ WEEKLY 90 Days ml 04/01/20 11/24/20 History subcutaneous pen injector fluticasone propionate 50 1 spray NS DAILY 04/01/20 11/24/20 History mcg/actuation nasal spray,suspension insulin detemir U-100 100 unit/mL 55 unit SQ DAILY 89 Days ml 04/01/20 11/24/20 History (3 mL) subcutaneous pen albuterol sulfate 90 mcg/actuation 2 puffs IH Q6HP PRN 06/23/20 11/24/20 History aerosol inhaler terbinafine HCL [Terbinafine HCl] 250 mg PO DAILY 11/17/20 11/23/20 History Naproxen [Naproxen 500mg tab] 500 mg PO BID 11/23/20 11/23/20 History dexAMETHasone [Decadron] 6 mg PO DAILY 11/23/20 11/23/20 History Pioglitazone HCl [Actos] 45 mg PO DAILY 11/24/20 11/24/20 History Height: 1.78 m Weight: 158.667 kg Laboratory Results:: Laboratory Results - last 24 hr 11/25/20 15:05: Lactate 1.1 11/25/20 16:43: Specimen Source Right radial, O2 % 100, ABG pH 7.33 L, ABG pCO2 35.3, ABG pO2 69.5 L, ABG HCO3 18.1 L, ABG Total CO2 19.2 L, ABG O2 Saturation 93, ABG Base Excess -7.9 L, Corey Test Patient unable, Vent Rate 22, Tidal Volume 440, PEEP 14 11/25/20 17:10: POC Glucose 294 H 11/25/20 23:06: POC Glucose 280 H 11/26/20 04:50: Sodium 139, Potassium 5.1, Chloride 110 H, Carbon Dioxide 20 L, Anion Gap 14.1, BUN 69 H, Creatinine 1.80 H D, Estimated Creat Clear 45, Estimated GFR 39 L, Est GFR ( Amer) 47 L D, Glucose 277 H D, Calcium 8.4, Total Bilirubin 0.4, AST 41 D, ALT 60 D, Alkaline Phosphatase 104, Total Protein 6.4, Albumin 2.9 L, Globulin 3.5 H, Albumin/Globulin Ratio 0.8 L 11/26/20 05:55: Specimen Source Right radial, O2 % 100, ABG pH 7.32 L, ABG pCO2 36.5, ABG pO2 71.9 L, ABG HCO3 18.4 L, ABG Total CO2 19.5 L, ABG O2 Saturation 93, ABG Base Excess -7.7 L, Corey Test Patient unable, Vent Rate 22, Tidal Volume 440, PEEP 14 11/26/20 06:27: POC Glucose 272 H 11/26/20 11:30: POC Glucose 302 H* Medical History: Reports:: Atrial Fibrillation, Diabetes Mellitus Type 2, Hyperlipidemia, Hypertension, Kidney Stones (2003), Tuberculosis Assessment and Plan (1) Respiratory failure Status: Acute Category: Medical Code(s): J96.90 - Respiratory failure, unspecified, unspecified whether with hypoxia or hypercapnia (2) COVID-19 Status: Acute Category: Medical Code(s): U07.1 - COVID-19 (3) Pneumonia involving right lung Status: Acute Category: Medical Code(s): J18.9 - Pneumonia, unspecified organism (4) Shortness of breath Status: Acute Category: Medical Code(s): R06.02 - Shortness of breath (5) Morbid obesity Status: Acute Category: Medical Code(s): E66.01 - Morbid (severe) obesity due to excess calories (6) Sepsis Status: Acute Category: Medical Code(s): A41.9 - Sepsis, unspecified organism (7) Atrial fibrillation with RVR Status: Acute Category: Medical Code(s): I48.91 - Unspecified atrial fibri
--- NOTE | 2020-11-26 12:41 | PC.NURSE ---
HR 120-130s and sustaining. BP 104/52. Contacted Wes FAIRBANKS. He ordered to increase Dilt gtt to 20mg/hr.
--- NOTE | 2020-11-26 13:30 | PC.NURSE ---
spoke to Wes Reno regarding sustained HR of 120-130s. Dr. Christiansen ordered an Esmolol gtt with parameters of HR 60-100 and SBP>100. Call pharmacy (Kevin) with new order. Called Dr. Snyder and updated him. He ordered for surgery MD to place a central line. Called next of kin, Lonny Dunn, who gave verbal consent over the phone. Tanvi Penn RN verified with next of kin over the phone. Called oncall surgeon (Dr. Cabrera). Awaiting his call back.
--- NOTE | 2020-11-26 13:56 | HMH.PULMPN ---
Internal Medicine - PN: Subj *Date: 11/26/20 *Time: 13:56 Interval history: No acute respiratory events overnight. Exam - Constitutional Constitutional:: comfortable - HENMT Exam HENMT: normocephalic, atraumatic - Eye Exam Eyes:: eyelids normal, normal conjunctiva - Neck Exam Neck:: thyroid normal, no lymphadenopathy - Respiratory Exam Comments: Intubated and sedated. Bilateral coarse breath sounds relatively unchanged from yesterday. Patient appeared comfortable. - Cardiovascular Exam Cardiac:: S1, S2 - GI Exam GI:: soft, obese - Skin Exam Skin: warm - Neurological Exam Intubated and sedated, appears comfortable. - Extremities Exam Extremities: no cyanosis, no clubbing, edema Assessment and Plan (1) Respiratory failure Status: Acute Category: Medical Code(s): J96.90 - Respiratory failure, unspecified, unspecified whether with hypoxia or hypercapnia (2) COVID-19 Status: Acute Category: Medical Code(s): U07.1 - COVID-19 (3) Pneumonia involving right lung Status: Acute Category: Medical Code(s): J18.9 - Pneumonia, unspecified organism (4) Shortness of breath Status: Acute Category: Medical Code(s): R06.02 - Shortness of breath (5) Morbid obesity Status: Acute Category: Medical Code(s): E66.01 - Morbid (severe) obesity due to excess calories (6) Sepsis Status: Acute Category: Medical Code(s): A41.9 - Sepsis, unspecified organism (7) Atrial fibrillation with RVR Status: Acute Category: Medical Code(s): I48.91 - Unspecified atrial fibrillation (8) Edema of lower extremity Status: Acute Category: Medical Code(s): R60.0 - Localized edema (9) History of tuberculosis Status: Acute Category: Medical Code(s): Z86.11 - Personal history of tuberculosis (10) HTN (hypertension) Status: Chronic Category: Medical Code(s): I10 - Essential (primary) hypertension (11) HLD (hyperlipidemia) Status: Chronic Category: Medical Code(s): E78.5 - Hyperlipidemia, unspecified (12) Hypoxemia Status: Acute Category: Medical Code(s): R09.02 - Hypoxemia (13) CKD (chronic kidney disease) stage 3, GFR 30-59 ml/min Status: Acute Category: Medical Code(s): N18.30 - Chronic kidney disease, stage 3 unspecified (14) Hyperkalemia Status: Acute Category: Medical Code(s): E87.5 - Hyperkalemia (15) Elevated troponin Status: Acute Category: Medical Code(s): R77.8 - Other specified abnormalities of plasma proteins - Assessment and plan all Dx Assessment and Plan for all problems:: #Acute hypoxic respiratory failure needing mechanical ventilation: #COVID-19 pneumonia: 60-year-old history of diabetes no prior respiratory complaints recent diagnosis cholecystectomy levofloxacin outpatient basis pending worsening respiratory failure cough and productive phlegm along with hypoxic respiratory failure needing high flow nasal cannula, respiratory status gradually worsening eventually needing intubation and mechanical ventilation on April 25, 2021. Patient on admission was initiated on ceftriaxone and azithromycin, antibiotics were escalated to cefepime with azithromycin given his recent admission and Abx curse with levofloxacin. Interval update: Patient respiratory status remained stable on high vent settings at 440 of tidal volume 14 of PEEP and FiO2 100%. ABG from this morning showed mild metabolic acidosis pH 7.32, 36.5, 71.9. Chest x-ray showed bilateral pulmonary infiltrates unchanged from yesterday. Auscultation revealed bilateral coarse breath sounds Patient renal function worsening with creatinine increased to 1.4-1.8 with GFR of 39 today. WBC relatively stable at 26. Patient will appear volume overloaded on examination however had a net negative urine output of 2 L yesterday with net negative 1.1 L will closely monitor his volume status to determine the need for additional Lasix dose. Patient nasal MRSA screen resulted positiv
--- NOTE | 2020-11-26 14:00 | PC.NURSE ---
Esmolol gtt decreased to 37mL/hr per pharmacist (Jim Schulte). SBP 90s.
--- NOTE | 2020-11-26 14:30 | PC.NURSE ---
left SC TLDL placed by Dr. Cabrera
--- NOTE | 2020-11-26 14:49 | XR_ITS ---
PROCEDURE: XR CHEST PORTABLE CLINICAL HISTORY: deep line Central line placement COMPARISON: CR XR CHEST PORTABLE from 11/25/2020 CR XR CHEST PORTABLE from 11/25/2020 CR XR CHEST PORTABLE from 11/26/2020 FINDINGS: Left subclavian central venous line has been placed. The tip is in the region the superior vena cava in good position. No evidence of pneumothorax. Endotracheal tube, nasogastric tube, remain in good position. There remains diffuse pneumonia in the right upper and right lower lobe and left lower lobe unchanged IMPRESSION: Left subclavian central venous line in place in good position without evidence of pneumothorax. No change bilateral pneumonia with endotracheal tube and nasogastric tube in good position. Dictated by: Corey Hdez MD 11/26/2020 15:18 Corey Hdez MD in [facility] 11/26/2020 15:18
--- NOTE | 2020-11-26 15:05 | HMH.PHAINT ---
11/26/20-SPOKE WITH NURSE ABOUT ESMOLOL AND DILTIAZEM CONCURRENTLY RUNNING. INDICATED Jim ESPOSITO WANTED DILTIAZEM RUNNING AT 20 ML/HR AND TO START THE ESMOLOL DRIP. PATIENT HAS METOPROL 5 MG IV ORDER PRN BUT NURSE NOT GIVING AT THIS TIME.
--- NOTE | 2020-11-26 15:35 | P.PCN_ITS ---
[facility] Procedure Note Procedure Note:: Procedure: Central venous catheter (left subclavian vein access) Indication: Inadequate venous access Prep: Chlorhexidine Description: After informed consent was obtained the patient was maintained in a supine position. His left chest and neck were prepped and draped in a sterile fashion. A large bore needle was utilized to access the left subclavian vein. Utilizing a modified Seldinger technique a 7 Monegasque triple-lumen catheter was secured in position at 17 cm. All ports flushed without difficulty. Estimated blood loss: 1 mL Complications: No immediate. Chest x-ray pending.
--- NOTE | 2020-11-26 16:55 | PC.NURSE ---
Esmolol gtt turned OFF secondary to SBP 70-80s. Wes FAIRBANKS updated.
[2020-11-26 17:19] LABS: POC Glucose,Bedside 357 (70-110)
[2020-11-26 20:31] LABS: POC Glucose,Bedside 388 (70-110)
--- NOTE | 2020-11-26 20:31 | PC.NURSE ---
House notified of need for bariatric bed so that pt may be turned.
--- NOTE | 2020-11-26 22:27 | PC.NURSE ---
He is intubated and sedated. Vent settings as follows: AC mode, TV 440, PEEP 14, Rate 22, 1000% FiO2. ETT moved to right side. He continues in contact and airborne precautions. Oral care provided. Turned to the right side. Generalized edema noted. Given acetaminophen for fever. HOB elevated. Ambu bag at bedside. Gag reflex present. Pulmocare tube feeding advanced to 60mL/hr at 1999 with 0 residual noted.
[2020-11-27] VITALS (30 sets, daily range): BP systolic 88–127; BP diastolic 34–61; PULSE 74–88; RESP 0–29; TEMP 36.1–37.2; O2SAT 91–99; BMI 53.9
--- NOTE | 2020-11-27 01:58 | PC.NURSE ---
Weaning sedation and pain medication at this time r/t blood pressure. MD ignition mechanic paged r/t joyce gtt and NSR on telemetry.
--- NOTE | 2020-11-27 02:01 | PC.NURSE ---
Per Dr. Falk, d/c joyce gtt at this time.
[2020-11-27 04:23] LABS: ABG Base Excess -11.7 mmol/L (-2.4-2.3); ABG HCO3 16.5 mmhg (22.0-26.0); ABG Oxygen Saturation 95 % (90-100); ABG PCO2 43.7 mmhg (35.0-45.0); ABG TCO2 17.8 mmhg (23-27)
[2020-11-27 04:25] LABS: Allen's Test Patient Unable; Oxygen 100 %; PEEP 14; Source Right Radial; Tidal Volume 440; Vent Rate 24
[2020-11-27 04:26] LABS: ABG PH 7.19 mmol/L (7.35-7.45)
--- NOTE | 2020-11-27 05:00 | XR_ITS ---
PROCEDURE: XR CHEST PORTABLE Referring Doctor: Jim Snyder Patient Age:60Y CLINICAL HISTORY: Pt intubated the pneumonia COMPARISON: Today's pCXR compared to P CXR 11/26/2020 as well as 11/25/2020 P CXR FINDINGS: AP portable semi-erect CXR compared to 11/26/2020 studies as well as 11/25/2020 the ET tube and NG tube are in satisfactory position ET tube tip 5.2 cm above lucila. Central line enters from the left subclavian vein with tip at SVC junction with brachycephalic vein. NG tube is in place and passes through the stomach with tip at the distal stomach at RUQ Bilateral infiltrates with slight progression of findings since yesterday although the less optimal inspiration on this study may accentuate markings Right lung. Diffuse infiltrate right lung with most pronounced dense consolidation right lower lobe of for the most part obscuring the lateral right hemidiaphragm lower density infiltrate continues throughout the right mid and upper lung field. Left chest-perihilar infiltrate slightly more evident. Dense infiltrate seen at the medial left lung base retrocardiac region; along with patchy area of infiltrate at the left mid lung which is slightly more pronounced V RC report suggested congestive failure. This may be a of minor component but I suspect we are primarily viewing asymmetric patchy pneumonic infiltrates and consolidation which could reflect covid pneumonia . Mild cardiomegaly. Of perhaps slight accentuation of upper lobe vascularity on today's semi-erect film IMPRESSION: ET tube; NG tube, and left subclavian venous catheter, in satisfactory position. Bilateral infiltrates more extensive at right lung . Suggestion slight progression since yesterday . There may be a minor component of vascular congestion contributing to this appearance (as suggested by V RC) but overall primarily viewing bilateral pneumonic infiltrates and consolidation as detailed in body of report Dictated by: Sergio Luna MD 11/27/2020 08:13 Sergio Luna MD in [facility] 11/27/2020 08:13
[2020-11-27 06:27] LABS: POC Glucose,Bedside 432 (70-110)
[2020-11-27 06:43] LABS: Alanine Aminotransferase 46 U/L (12-78); Albumin Level 2.5 g/dl (3.5-5.0); Albumin/Globulin Ratio 0.7 (1.1-1.8); Alkaline Phosphatase 84 U/L (38-126); Anion Gap 13.5 mEq/L (5-15); Aspartate Amino Transferase 53 U/L (17-59); Bilirubin,Total 0.3 mg/dl (0.2-1.3); Calcium 7.8 mg/dl (8.4-10.2); Carbon Dioxide 19 mmol/L (22.0-30.0); Chloride 109 mmol/L (98-107); Creatinine Clearance Estimated 22 mL/min (50-200); Estimated Glomerular Filt Rate 17 ml/min (>60); GFR (African American) 20 ML/MIN (>60); Globulin 3.4 g/dL (1.3-3.2); Sodium 135 mmol/L (136-145); Total Protein,Serum 5.9 g/dl (6.3-8.2)
[2020-11-27 06:48] LABS: Glucose 439 mg/dl (74-100); Potassium 6.5 mmoL/L (3.5-5.1)
[2020-11-27 06:49] LABS: Blood Urea Nitrogen 101 mg/dl (9-20)
--- NOTE | 2020-11-27 06:54 | PC.NURSE ---
Dr. Falk notified of the following at 0654 on 11/27/20 Critical: k+ 6.5 glucose 439-this is lab's critical, floor's critical is 500, given glimepiride and humalog 20 units. Notification: BUN 101 Creatinine 3.7 No new orders.
--- NOTE | 2020-11-27 09:25 | HMH.ACPN2 ---
Internal Medicine - PN: Subj *Date: 11/27/20 *Time: 09:25 Interval history: BP's have been low. Off Carvedilol and off Esmolol. Will D/C lisinopril. Acidotic ABG's (metabolic). Rate increased this AM to 14. FiO2 at 100%. Creatinine increased. Rests quietly on Vent. Exam Vital signs and Labs for Last 24 Hours: Temp Pulse Resp BP Pulse Ox 97.4 F L 74 25 H 95/36 L 95 11/27/20 09:00 11/27/20 09:00 11/27/20 09:00 11/27/20 09:00 11/27/20 09:00 Laboratory Results - last 24 hr 11/26/20 11:30: POC Glucose 302 H* 11/26/20 17:11: POC Glucose 357 H* 11/26/20 20:19: POC Glucose 388 H* 11/27/20 05:04: POC Glucose 432 H* 11/27/20 05:50: Sodium 135 L, Potassium 6.5 H* D, Chloride 109 H, Carbon Dioxide 19 L, Anion Gap 13.5, BUN 101 H* D, Creatinine 3.70 H D, Estimated Creat Clear 22, Estimated GFR 17 L*, Est GFR ( Amer) 20 L D, Glucose 439 H*, Calcium 7.8 L, Total Bilirubin 0.3, AST 53 D, ALT 46, Alkaline Phosphatase 84, Total Protein 5.9 L, Albumin 2.5 L D, Globulin 3.4 H, Albumin/Globulin Ratio 0.7 L 11/27/20 06:00: Specimen Source Right radial, O2 % 100, ABG pH 7.19 L*, ABG pCO2 43.7, ABG pO2 78.0 L, ABG HCO3 16.5 L, ABG Total CO2 17.8 L, ABG O2 Saturation 95, ABG Base Excess -11.7 L, Corey Test Patient unable, Vent Rate 24, Tidal Volume 440, PEEP 14 Laboratory Tests 11/26/20 11/27/20 11/27/20 04:50 05:50 06:00 ABG pH 7.19 L* ABG pCO2 43.7 ABG pO2 78.0 L ABG HCO3 16.5 L ABG O2 Saturation 95 Potassium 5.1 6.5 H* D I & O for Last 24 hours: Intake & Output 11/24/20 11/25/20 11/26/20 11/27/20 11:59 11:59 11:59 11:59 Intake Total 1496 / 1496 1764 / 1764 585.25 / 585.25 3042.5 / 3042.5 Output Total 1450 / 1450 2450 / 2450 1795 / 1805 316 / 316 Balance 46 / 46 -686 / -686 -1209.75 / -1219.75 2726.5 / 2726.5 Weight 349 lb 5 oz 344 lb 2.265 oz 349 lb 12.8 oz 376 lb 12.32 oz Microbiology Reports for the Last 24 Hours: Microbiology 11/26/20 10:40 Sputum - Endotracheal Tube Aspirate Gram Stain - Final 11/26/20 10:40 Sputum - Endotracheal Tube Aspirate Sputum Culture - Preliminary - Constitutional no acute distress (intubated, on vent. Note afebrile.) - *Routine HEENT Exam Head: Present: normocephalic, atraumatic - *Routine Respiratory Exam Present: patient mechanically ventilated, decreased breath sounds - *Routine Cardiovascular Exam Present: RRR (in 70's) - *Routine Abdominal Exam Present: soft. Absent: tenderness - *Routine Extremities Exam Present: edema (trace) Assessment and Plan (1) Respiratory failure Status: Acute Category: Medical Code(s): J96.90 - Respiratory failure, unspecified, unspecified whether with hypoxia or hypercapnia (2) COVID-19 Status: Acute Category: Medical Code(s): U07.1 - COVID-19 (3) Pneumonia involving right lung Status: Acute Category: Medical Code(s): J18.9 - Pneumonia, unspecified organism (4) Shortness of breath Status: Acute Category: Medical Code(s): R06.02 - Shortness of breath (5) Morbid obesity Status: Acute Category: Medical Code(s): E66.01 - Morbid (severe) obesity due to excess calories (6) Sepsis Status: Acute Category: Medical Code(s): A41.9 - Sepsis, unspecified organism (7) Atrial fibrillation with RVR Status: Acute Category: Medical Code(s): I48.91 - Unspecified atrial fibrillation (8) Edema of lower extremity Status: Acute Category: Medical Code(s): R60.0 - Localized edema (9) History of tuberculosis Status: Acute Category: Medical Code(s): Z86.11 - Personal history of tuberculosis (10) HTN (hypertension) Status: Chronic Category: Medical Code(s): I10 - Essential (primary) hypertension (11) HLD (hyperlipidemia) Status: Chronic Category: Medical Code(s): E78.5 - Hyperlipidemia, unspecified (12) Hypoxemia Status: Acute Category: Medical Code(s): R09.02 - Hypoxemia (13) CKD (chronic kidney disease) stage 3
--- NOTE | 2020-11-27 09:26 | PC.NURSE ---
relayed to md patient bp has maintained a map in the 50s low 60s. systolic has been 90s. patient cardizem and esmolol are both off. turned down versed drip to 0.08mg/kg/hr. no new orders obtained from md. stated to dc lisinopril. and it was okay to change the kayexalate to og tub instead of rectal
--- NOTE | 2020-11-27 09:39 | PC.NURSE ---
AT APPROX.2044 I AND TECH FROM 2ND FLOOR TOOK BARIATRIC BED TO [facility] PRIOR TO ENTERING [facility].WHEN THIS NURSE CALLED TO [facility], NURSE Darinel CAN SAID THEY WERE BUSY AT TIME AND WOULD HAVE TO SWITCH OUT BEDS LATER FOR THIS PT. BED LEFT IN [facility] TILL ABLE TO CHANGE BEDS OUT.
--- NOTE | 2020-11-27 09:47 | PC.NURSE ---
Addendum entered by Tanvi Penn RN 11/27/20 10:04: levophed was also decreased to 6mcg/min at that time Original Note: checked residual and only 20ml noted. 100ml flush given this time plus about 60 with meds.
--- NOTE | 2020-11-27 09:54 | PC.NURSE ---
AT APPROX.2044 ON 11/26/2020 THIS NURSE WAS NOTIFIED THAT THS PT NEEDED BARIATRIC BED. BARIATRIC BED WAS TAKEN TO [facility] PRIOR TO [facility].I CALLED [facility] TO LET THEM KNOW ABOUT THE BED. NURSE STATED THEY WERE BUSY AND WOULD NEED TO DO THE CHANGING OF BEDS LATER.
--- NOTE | 2020-11-27 10:11 | HMH.PULMPN ---
Internal Medicine - PN: Subj *Date: 11/27/20 *Time: 11:17 Interval history: No acute respiratory events overnight. Renal function continued to worsen. Exam - Constitutional Constitutional:: comfortable - HENMT Exam HENMT: atraumatic - Eye Exam Eyes:: eyelids normal, normal conjunctiva - Neck Exam Neck:: thyroid normal, no lymphadenopathy - Respiratory Exam Comments: Bilateral coarse breath sounds unchanged from yesterday. - Cardiovascular Exam Cardiac:: S1, S2 - GI Exam GI:: soft, obese - Skin Exam Skin: warm - Neurological Exam Intubated and sedated. - Extremities Exam Extremities: no cyanosis, no clubbing, edema Assessment and Plan (1) Respiratory failure Status: Acute Category: Medical Code(s): J96.90 - Respiratory failure, unspecified, unspecified whether with hypoxia or hypercapnia (2) COVID-19 Status: Acute Category: Medical Code(s): U07.1 - COVID-19 (3) Pneumonia involving right lung Status: Acute Category: Medical Code(s): J18.9 - Pneumonia, unspecified organism (4) Shortness of breath Status: Acute Category: Medical Code(s): R06.02 - Shortness of breath (5) Morbid obesity Status: Acute Category: Medical Code(s): E66.01 - Morbid (severe) obesity due to excess calories (6) Sepsis Status: Acute Category: Medical Code(s): A41.9 - Sepsis, unspecified organism (7) Atrial fibrillation with RVR Status: Acute Category: Medical Code(s): I48.91 - Unspecified atrial fibrillation (8) Edema of lower extremity Status: Acute Category: Medical Code(s): R60.0 - Localized edema (9) History of tuberculosis Status: Acute Category: Medical Code(s): Z86.11 - Personal history of tuberculosis (10) HTN (hypertension) Status: Chronic Category: Medical Code(s): I10 - Essential (primary) hypertension (11) HLD (hyperlipidemia) Status: Chronic Category: Medical Code(s): E78.5 - Hyperlipidemia, unspecified (12) Hypoxemia Status: Acute Category: Medical Code(s): R09.02 - Hypoxemia (13) CKD (chronic kidney disease) stage 3, GFR 30-59 ml/min Status: Acute Category: Medical Code(s): N18.30 - Chronic kidney disease, stage 3 unspecified (14) Hyperkalemia Status: Acute Category: Medical Code(s): E87.5 - Hyperkalemia (15) Elevated troponin Status: Acute Category: Medical Code(s): R77.8 - Other specified abnormalities of plasma proteins - Assessment and plan all Dx Assessment and Plan for all problems:: #Acute hypoxic respiratory failure needing mechanical ventilation: #COVID-19 pneumonia: 60-year-old history of diabetes no prior respiratory complaints recent diagnosis cholecystectomy levofloxacin outpatient basis pending worsening respiratory failure cough and productive phlegm along with hypoxic respiratory failure needing high flow nasal cannula, respiratory status gradually worsening eventually needing intubation and mechanical ventilation on April 25, 2021. Patient on admission was initiated on ceftriaxone and azithromycin, antibiotics were escalated to cefepime with azithromycin given his recent admission and Abx course with levofloxacin. Interval update: Patient respiratory status remained stable with relatively stable PO2 78.0 and PCO2 43.1 however ABG showed severe metabolic acidosis with a pH of 7.19. Renal function worsening, creatinine now at 3.7 with EGFR of 17. Ventilator settings changed to improve respiratory compensation for his metabolic acidosis Urine output total of 1 L yesterday with net positive of 2 L. Hyperkalemia with a potassium of 6.5. Continue to receive vancomycin, azithromycin along with Cardizem drip. Patient respiratory status overall remained critical with high vent settings along with worsening renal function decreasing urine output leading to volume overload hyperkalemia is concerning. We will recommend closely monitoring his renal function hyperkalemia continue emergent treatm
--- NOTE | 2020-11-27 10:51 | ECG_ITS ---
APPROVED REPORT Exam: Resting ECG HR:74 bpm ECG Measurements Heart Rate 74 AXES NV 138 P 63 QRSd 138 QRS 18 QT 382 T -47 QTc 424 Conclusion Normal sinus rhythm Right bundle branch block T wave abnormality, consider inferior ischemia Abnormal ECG Electronically signed by : Finn Nagel, 11/29/2020 19:42:26
--- NOTE | 2020-11-27 11:54 | PC.NURSE ---
dr shah stated to start levophed on patient to maintain a map of greater than 60 and systolic of 100. currently patient bp has come up so will hold off on levophd at this time. will start if bp drops again. also ordered for a repeat potassium. patient fsbs was 571 so stat glucose ordered
--- NOTE | 2020-11-27 12:05 | DIET.NUTRFU ---
Addendum entered by Hattie Lancaster 11/28/20 16:29: Pt with blood from NG this am, no other signs poor tolerance. Also with critical hyperglycemia on max insulin. Recommend hold TF til 20:00, reassess NG tube aspirate and restart at 30ml/h if without blood, continue to hold til am if continued blood aspirate. Will reassess pt NG function/BG in am to alter further nutritional care plans.Communicated plan with RN, continuing to monitor. Original Note: Pt with critical nutrition related labs- K, BUN, BG. Do not increase TF rate, rate at this time. Goal rate changed in order to current running rate of 60ml/hr. Fluids slightly increased to 160ml/hr. Pt within conservative fluid needs. Regimen at 60ml/hr provides 2070kcal, 86g protein, 146g cho, 129g fat, and 1080ml free water. Continuing to monitor and alter as indicated.
--- NOTE | 2020-11-27 12:05 | PC.NURSE ---
spoke with dr. sterling about high fsbs. stated to give the 20units for his fsbs
[2020-11-27 12:41] LABS: Glucose,Random 545 mg/dL (74-100)
[2020-11-27 12:42] LABS: Potassium 6.2 mmoL/L (3.5-5.1)
[2020-11-27 12:43] LABS: Basophils # 0.1 K/mm3 (0-0.2); Basophils % 0.4 % (0.1-2.0); Eosinophils % 0.1 % (0.1-12.0); Hemoglobin 9.2 g/dL (14.1-18.0); Lymphocytes # 0.8 K/mm3 (0.7-4.5); Lymphocytes % 3.2 % (10-50); Mean Corpuscular HGB Conc 28.8 g/dL (31.8-35.4); Mean Corpuscular Hemoglobin 29.5 pg (27.0-31.2); Mean Corpuscular Volume 102.2 fl (80-94); Mean Platelet Volume 11.2 fl (7.4-10.4); Monocytes % 3.9 % (1.7-9.3); Neutrophils # 22.8 K/mm3 (1.8-7.8); Neutrophils % 92.5 % (37.0-80.0); Platelet Count 242 K/mm3 (142-424); Red Blood Count 3.13 M/mm3 (4.60-6.20); Red Cell Distribution Width 14.7 % (11.5-17.5); White Blood Count 24.7 K/mm3 (4.8-10.8)
[2020-11-27 12:46] LABS: MANUAL DIFFERENTIAL MANUAL DIFFERENTIAL (MANUAL DIFF)
--- NOTE | 2020-11-27 13:18 | PC.NURSE ---
dr sterling aware of critical fsbs/glucose he was made aware. pablo is aware of patient potassium. only wanted to ensure lab was accurate.
[2020-11-27 14:01] LABS: Lymphocytes % 2 % (10-50); Macrocytosis 1+; Monocytes % 3 % (2-9); Neutrophils % 95 % (42-76); Platelet Estimate Normal; Total Cells Counted 100
--- NOTE | 2020-11-27 16:03 | HMH.ACPN ---
Internal Medicine - PN: Subj *Date: 11/27/20 *Time: 16:03 Exam Vital signs and Labs for Last 24 Hours: Temp Pulse Resp BP Pulse Ox 97.0 F L 80 22 117/48 L 96 11/27/20 15:00 11/27/20 15:00 11/27/20 15:00 11/27/20 15:00 11/27/20 15:00 Laboratory Results - last 24 hr 11/26/20 17:11: POC Glucose 357 H* 11/26/20 20:19: POC Glucose 388 H* 11/27/20 05:04: POC Glucose 432 H* 11/27/20 05:50: Sodium 135 L, Potassium 6.5 H* D, Chloride 109 H, Carbon Dioxide 19 L, Anion Gap 13.5, BUN 101 H* D, Creatinine 3.70 H D, Estimated Creat Clear 22, Estimated GFR 17 L*, Est GFR ( Amer) 20 L D, Glucose 439 H*, Calcium 7.8 L, Total Bilirubin 0.3, AST 53 D, ALT 46, Alkaline Phosphatase 84, Total Protein 5.9 L, Albumin 2.5 L D, Globulin 3.4 H, Albumin/Globulin Ratio 0.7 L 11/27/20 05:50: WBC 24.7 H*, RBC 3.13 L, Hgb 9.2 L, Hct 32.0 L, MCV 102.2 H, MCH 29.5, MCHC 28.8 L, RDW 14.7, Plt Count 242 D, MPV 11.2 H, Neut % (Auto) 92.5 H, Lymph % (Auto) 3.2 L, [place] % (Auto) 3.9, Eos % (Auto) 0.1, Baso % (Auto) 0.4, Neut # (Auto) 22.8 H, Lymph # (Auto) 0.8, [place] # (Auto) 1.0, Eos # (Auto) 0.0, Baso # (Auto) 0.1, Total Counted 100, Neutrophils % (Manual) 95 H, Lymphocytes % (Manual) 2 L, Monocytes % (Manual) 3, Platelet Estimate Normal, Macrocytosis 1+ 11/27/20 06:00: Specimen Source Right radial, O2 % 100, ABG pH 7.19 L*, ABG pCO2 43.7, ABG pO2 78.0 L, ABG HCO3 16.5 L, ABG Total CO2 17.8 L, ABG O2 Saturation 95, ABG Base Excess -11.7 L, Corey Test Patient unable, Vent Rate 24, Tidal Volume 440, PEEP 14 11/27/20 11:50: Potassium 6.2 H* 11/27/20 11:50: Random Glucose 545 H* I & O for Last 24 hours: Intake & Output 11/24/20 11/25/20 11/26/20 11/27/20 23:59 23:59 23:59 23:59 Intake Total 2330 / 2780 910 / 970 3194.75 / 3258.75 505 / 505 Output Total 2300 / 2950 2014 1015 / 1019 381 / 381 Balance 30 / -170 -1105 / -1095 2179.75 / 2239.75 124 / 124 Weight 158 kg 156.1 kg 158.667 kg 170.9 kg Microbiology Reports for the Last 24 Hours: Microbiology 11/25/20 11:50 Anus CRE Surveillance Culture - Final Negative 11/26/20 10:40 Sputum - Endotracheal Tube Aspirate Gram Stain - Final 11/26/20 10:40 Sputum - Endotracheal Tube Aspirate Sputum Culture - Preliminary Assessment and Plan (1) Respiratory failure Status: Acute Category: Medical Code(s): J96.90 - Respiratory failure, unspecified, unspecified whether with hypoxia or hypercapnia (2) COVID-19 Status: Acute Category: Medical Code(s): U07.1 - COVID-19 (3) Pneumonia involving right lung Status: Acute Category: Medical Code(s): J18.9 - Pneumonia, unspecified organism (4) Shortness of breath Status: Acute Category: Medical Code(s): R06.02 - Shortness of breath (5) Morbid obesity Status: Acute Category: Medical Code(s): E66.01 - Morbid (severe) obesity due to excess calories (6) Sepsis Status: Acute Category: Medical Code(s): A41.9 - Sepsis, unspecified organism (7) Atrial fibrillation with RVR Status: Acute Category: Medical Code(s): I48.91 - Unspecified atrial fibrillation (8) Edema of lower extremity Status: Acute Category: Medical Code(s): R60.0 - Localized edema (9) History of tuberculosis Status: Acute Category: Medical Code(s): Z86.11 - Personal history of tuberculosis (10) HTN (hypertension) Status: Chronic Category: Medical Code(s): I10 - Essential (primary) hypertension (11) HLD (hyperlipidemia) Status: Chronic Category: Medical Code(s): E78.5 - Hyperlipidemia, unspecified (12) Hypoxemia Status: Acute Category: Medical Code(s): R09.02 - Hypoxemia (13) CKD (chronic kidney disease) stage 3, GFR 30-59 ml/min Status: Acute Category: Medical Code(s): N18.30 - Chronic kidney disease, stage 3 unspecified (14) Hyperkalemia Status: Acute Category: Medical Code(s): E87.5 - Hyperkalemia (15) Elevated troponin Status: Acute Ca
--- NOTE | 2020-11-27 17:31 | PC.NURSE ---
Addendum entered by Tanvi Penn RN 11/28/20 07:39: error. levophed was at 4mcg/min Addendum entered by Tanvi Penn RN 11/27/20 18:09: cpot has been 0 and sedation rass -3. Original Note: patient has tolerated levophed drip well. maintaining a map of 60 or greater. has remained normal sinus rhythm with a rate of 70s. little urine output this shift. bariatric bed is helping with [id number]. oral care provided. scant amount of secretions only when laid flat will there be a littel that needs suctioned from mouth. md was previously made aware of higher fsbs, stated to just follow on with the sliding scale insulin. versed drip at 0.08mg/kg/hr. fentanyl remains at 20mcg/hr. levophed drip at 8mcg/min
[2020-11-27 17:52] LABS: Glucose,Random 546 mg/dL (74-100)
[2020-11-27 20:22] LABS: Glucose,Random 548 mg/dL (74-100)
--- NOTE | 2020-11-27 22:56 | PC.NURSE ---
Critical glucose: 548 Dr. Snyder notified at 2039 on 11/27/20 Give humalog SSI of 25 units Give scheduled dose of levemir Change levophed from being mixed in D5W to mixed in 0.9%NS. Keep same goal parameters.
[2020-11-28] VITALS (37 sets, daily range): BP systolic 99–131; BP diastolic 39–56; PULSE 73–94; RESP 22–29; TEMP 36.1–37.1; O2SAT 96–99; BMI 54.4
[2020-11-28 05:21] LABS: Chloride 109 mmol/L (98-107); Sodium 135 mmol/L (136-145)
[2020-11-28 05:24] LABS: Alanine Aminotransferase 66 U/L (12-78); Albumin Level 2.5 g/dl (3.5-5.0); Albumin/Globulin Ratio 0.8 (1.1-1.8); Alkaline Phosphatase 92 U/L (38-126); Anion Gap 14.2 mEq/L (5-15); Aspartate Amino Transferase 123 U/L (17-59); Bilirubin,Total 0.2 mg/dl (0.2-1.3); Calcium 7.5 mg/dl (8.4-10.2); Carbon Dioxide 19 mmol/L (22.0-30.0); Creatinine Clearance Estimated 20 mL/min (50-200); Estimated Glomerular Filt Rate 15 ml/min (>60); GFR (African American) 18 ML/MIN (>60); Globulin 3.2 g/dL (1.3-3.2); Total Protein,Serum 5.7 g/dl (6.3-8.2)
[2020-11-28 05:32] LABS: Potassium 7.2 mmoL/L (3.5-5.1)
[2020-11-28 05:33] LABS: Blood Urea Nitrogen 125 mg/dl (9-20); Glucose 566 mg/dl (74-100)
[2020-11-28 07:03] LABS: ABG Base Excess -11.5 mmol/L (-2.4-2.3); ABG HCO3 16.8 mmhg (22.0-26.0); ABG Oxygen Saturation 97 % (90-100); ABG PCO2 45.8 mmhg (35.0-45.0); ABG PO2 97.2 mmhg (80-100); ABG TCO2 18.2 mmhg (23-27)
[2020-11-28 07:13] LABS: Allen's Test Patient Unable; Oxygen 100 %; PEEP 14; Source Right Radial; Tidal Volume 480; Vent Rate 22
[2020-11-28 07:16] LABS: ABG PH 7.18 mmol/L (7.35-7.45)
--- NOTE | 2020-11-28 07:30 | XR_ITS ---
PROCEDURE: XR CHEST PORTABLE Referring Doctor: Jim Snyder Patient Age:60Y CLINICAL HISTORY: Pt intubated Pneumonia COMPARISON: CR XR CHEST PORTABLE from 11/26/2020 CR XR CHEST PORTABLE from 11/26/2020 CR XR CHEST PORTABLE from 11/27/2020 FINDINGS: AP portable supine CXR . ET-satisfactory position just less than 7 cm above lucila. . NG tube s passes well into the stomach . Left subclavian central line of with tip at the brachycephalic vein near its junction with SVC. Would question if this central line may been pulled back roughly 1 cm since yesterday The bilateral infiltrates appear slightly improved particular when compared back to November 26 studies. Diffuse infiltrate persist throughout the right lung most pronounced towards the right base. Slightly patchy in character but the infiltrate at the right base appears slightly less dense Left lung. Infiltrate at the perihilar region is central left lung has improved and there has been better expansion of it slight clearing at infiltrate at the left base. Heart upper normal size. Pulmonary vascularity appears of normal for a supine position IMPRESSION: ET tube, NG tube and left subclavian central line-satisfactory position (Today's CXR suggest left subclavian central line may be pulled back 1 cm since yesterday) Slight improvement of the bilateral infiltrates since yesterday's and other prior studies Infiltrate most pronounced throughout the right lung but slightly less dense particularly at right lung base. Dictated by: Sergio Luna MD 11/28/2020 08:13 Sergio Luna MD in [facility] 11/28/2020 08:13
--- NOTE | 2020-11-28 09:30 | PC.NURSE ---
INCREASED PT RR FROM 22 TO 24 PER ANNANGI ORDER. PT TOLERATING WELL AT THIS TIME.
--- NOTE | 2020-11-28 10:23 | PC.NURSE ---
notified md that after giving morning lovenox went to check the ng tube. noted that when pulling back he had blood. pulled back about 60ml of blood. md stated to lavage the ng tube some and monitor at this time. stated he was looking into transfer.
[2020-11-28 10:39] LABS: Glucose,Random 578 mg/dL (74-100)
--- NOTE | 2020-11-28 10:39 | PC.NURSE ---
is aware patient has had critical glucose. patient is now on inuslin drip.
--- NOTE | 2020-11-28 11:18 | PC.NURSE ---
insulin drip started at 5mg/hr at 1000. increased drip to 8mg/hr at this time
[2020-11-28 11:24] LABS: POC Glucose,Bedside 538 (70-110)
[2020-11-28 11:24] LABS: POC Glucose,Bedside 571 (70-110)
[2020-11-28 11:24] LABS: POC Glucose,Bedside 517 (70-110)
[2020-11-28 11:24] LABS: POC Glucose,Bedside 506 (70-110)
[2020-11-28 11:25] LABS: POC Glucose,Bedside 578 (70-110)
[2020-11-28 11:25] LABS: POC Glucose,Bedside 575 (70-110)
--- NOTE | 2020-11-28 11:26 | HMH.ACPN2 ---
Internal Medicine - PN: Subj *Date: 11/28/20 *Time: 11:26 Interval history: Renal status has deteriorated significantly. Respiratory status may actually be a bit better. CXR a bit improved. Dr. Synder has been in contact with patient's brother, Richard to keep him informed of patient's status. Transfer of patient for purpose of dialysis was discussed with Richard as well as with Dr. Lopez. Dr. Goins emphasized the possibility that dialysis may become permanant (30% chance) even if patient recovers. Obviously transfer will be technically challenging. Dr. Snyder contacted MD's and spoke with Dr. Wong, who would accept patient, but no beds are available at this time. Patient will be listed for bed availability. This AM ventilator rate has been increased to 24 to help decrease CO2. Acidosis is metabolic. Elevated potassium is being addressed by Kayexelate, and insulin drip has been recommended by Dr. Lopez. I have also increased Levemir to bid. Furosemide has been administered with limited urine output response. Weight increase noted. Exam Vital signs and Labs for Last 24 Hours: Temp Pulse Resp BP Pulse Ox 97.3 F L 81 24 102/43 L 98 11/28/20 11:00 11/28/20 11:00 11/28/20 11:00 11/28/20 11:00 11/28/20 11:00 Laboratory Results - last 24 hr 11/27/20 05:50: WBC 24.7 H*, RBC 3.13 L, Hgb 9.2 L, Hct 32.0 L, MCV 102.2 H, MCH 29.5, MCHC 28.8 L, RDW 14.7, Plt Count 242 D, MPV 11.2 H, Neut % (Auto) 92.5 H, Lymph % (Auto) 3.2 L, [place] % (Auto) 3.9, Eos % (Auto) 0.1, Baso % (Auto) 0.4, Neut # (Auto) 22.8 H, Lymph # (Auto) 0.8, [place] # (Auto) 1.0, Eos # (Auto) 0.0, Baso # (Auto) 0.1, Total Counted 100, Neutrophils % (Manual) 95 H, Lymphocytes % (Manual) 2 L, Monocytes % (Manual) 3, Platelet Estimate Normal, Macrocytosis 1+ 11/27/20 11:38: POC Glucose 571 H* 11/27/20 11:50: Potassium 6.2 H* 11/27/20 11:50: Random Glucose 545 H* 11/27/20 16:54: POC Glucose 506 H* 11/27/20 17:15: Random Glucose 546 H* 11/27/20 19:36: POC Glucose 517 H* 11/27/20 19:50: Random Glucose 548 H* 11/28/20 04:55: POC Glucose 538 H* 11/28/20 05:10: Sodium 135 L, Potassium 7.2 H*, Chloride 109 H, Carbon Dioxide 19 L, Anion Gap 14.2, BUN 125 H*, Creatinine 4.10 H, Estimated Creat Clear 20, Estimated GFR 15 L*, Est GFR ( Amer) 18 L*, Glucose 566 H* D, Calcium 7.5 L, Total Bilirubin 0.2, AST 123 H D, ALT 66 D, Alkaline Phosphatase 92, Total Protein 5.7 L, Albumin 2.5 L, Globulin 3.2, Albumin/Globulin Ratio 0.8 L 11/28/20 07:00: Specimen Source Right radial, O2 % 100, ABG pH 7.18 L*, ABG pCO2 45.8 H, ABG pO2 97.2, ABG HCO3 16.8 L, ABG Total CO2 18.2 L, ABG O2 Saturation 97, ABG Base Excess -11.5 L, Corey Test Patient unable, Vent Rate 22, Tidal Volume 480, PEEP 14 11/28/20 09:50: POC Glucose 578 H* 11/28/20 10:20: Random Glucose 578 H* 11/28/20 11:13: POC Glucose 575 H* Laboratory Tests 11/28/20 11/28/20 05:10 07:00 ABG pH 7.18 L* ABG pCO2 45.8 H ABG pO2 97.2 ABG O2 Saturation 97 Potassium 7.2 H* BUN 125 H* Creatinine 4.10 H I & O for Last 24 hours: Intake & Output 11/25/20 11/26/20 11/27/20 11/28/20 11:59 11:59 11:59 11:59 Intake Total 1764 / 1764 585.25 / 585.25 3334.5 / 3334.5 2260.958 / 2260.958 Output Total 2450 / 2450 1795 / 1805 316 / 316 841 / 841 Balance -686 / -686 -1209.75 / -1219.75 3018.5 / 3018.5 1419.958 / 1419.958 Weight 344 lb 2.265 oz 349 lb 12.8 oz 376 lb 12.32 oz 380 lb 8.285 oz Microbiology Reports for the Last 24 Hours: Microbiology 11/25/20 10:40 Chest - Pulmonary - Final 11/25/20 10:40 Chest - Pulmonary Acid Fast Bacilli Smear - Final 11/26/20 10:40 Sputum - Endotracheal Tube Aspirate Gram Stain - Final 11/26/20 10:40 Sputum - Endotracheal Tube Aspirate Sputum Culture - Preliminary Gram Positive Cocci 11/25/20 11:50 Anus CRE Surveillance Culture - Final Negative - Constitutional no acute distress (intubated
--- NOTE | 2020-11-28 11:57 | PC.NURSE ---
increased drip to 12 units/hr.
[2020-11-28 12:14] LABS: POC Glucose,Bedside 543 (70-110)
--- NOTE | 2020-11-28 12:58 | PC.NURSE ---
increased drip to 18 units hour.
--- NOTE | 2020-11-28 13:46 | PC.NURSE ---
stated to follow the dka protocol as far as increasing and titrating drip with his fsbs, but to not get the bmp q4hr. just in the morning
--- NOTE | 2020-11-28 13:56 | PC.NURSE ---
holding tube feed to rest gut. noted blood per ng tube. will restart.
--- NOTE | 2020-11-28 14:19 | PC.NURSE ---
increased insulin drip to 20units/hr. max rate.
[2020-11-28 14:21] LABS: Vancomycin,Trough 31.1 ug/mL (5.0-10.0)
--- NOTE | 2020-11-28 14:24 | HMH.PHACONS ---
- Pharmacy Consult Date: 11/28/20 Time: 14:24 Referring provider: DR. BAEZ Reason for Consult:: VANCOMYCIN TROUGH LEVEL Allergies and ADEs:: Allergies Allergy/AdvReac Type Severity Reaction Status Date / Time No Known Allergies Allergy Verified 09/22/20 08:59 Home Medications:: Home Medications Medication Instructions Recorded Confirmed Type atorvastatin 80 mg tablet 80 mg PO HS 90 Days tab 06/20/18 11/24/20 History ezetimibe 10 mg tablet 10 mg PO DAILY 90 Days tab 06/20/18 11/23/20 History glimepiride 4 mg tablet 4 mg PO DAILY 90 Days tab 06/20/18 11/24/20 History hydrochlorothiazide 12.5 mg tablet 12.5 mg PO DAILY 30 Days tab 06/20/18 11/23/20 History metformin 1,000 mg tablet 1,000 mg PO BID 90 Days tab 06/20/18 11/24/20 History metolazone 2.5 mg tablet 2.5 mg PO Q48H 30 Days #15 tab 06/20/18 11/24/20 History quinapril 40 mg tablet 40 mg PO DAILY 90 Days tab 06/20/18 11/23/20 History tamsulosin 0.4 mg capsule 0.4 mg PO DAILY 90 Days #90 06/20/18 11/23/20 History aspirin 81 mg tablet,delayed 81 mg PO DAILY 10/16/18 11/23/20 History release dulaglutide 1.5 mg/0.5 mL 1.5 mg SQ WEEKLY 90 Days ml 04/01/20 11/24/20 History subcutaneous pen injector fluticasone propionate 50 1 spray NS DAILY 04/01/20 11/24/20 History mcg/actuation nasal spray,suspension insulin detemir U-100 100 unit/mL 55 unit SQ DAILY 89 Days ml 04/01/20 11/24/20 History (3 mL) subcutaneous pen albuterol sulfate 90 mcg/actuation 2 puffs IH Q6HP PRN 06/23/20 11/24/20 History aerosol inhaler terbinafine HCL [Terbinafine HCl] 250 mg PO DAILY 11/17/20 11/23/20 History Naproxen [Naproxen 500mg tab] 500 mg PO BID 11/23/20 11/23/20 History dexAMETHasone [Decadron] 6 mg PO DAILY 11/23/20 11/23/20 History Pioglitazone HCl [Actos] 45 mg PO DAILY 11/24/20 11/24/20 History Height: 1.78 m Weight: 172.6 kg Laboratory Results:: Laboratory Results - last 24 hr 11/27/20 11:38: POC Glucose 571 H* 11/27/20 16:54: POC Glucose 506 H* 11/27/20 17:15: Random Glucose 546 H* 11/27/20 19:36: POC Glucose 517 H* 11/27/20 19:50: Random Glucose 548 H* 11/28/20 04:55: POC Glucose 538 H* 11/28/20 05:10: Sodium 135 L, Potassium 7.2 H*, Chloride 109 H, Carbon Dioxide 19 L, Anion Gap 14.2, BUN 125 H*, Creatinine 4.10 H, Estimated Creat Clear 20, Estimated GFR 15 L*, Est GFR ( Amer) 18 L*, Glucose 566 H* D, Calcium 7.5 L, Total Bilirubin 0.2, AST 123 H D, ALT 66 D, Alkaline Phosphatase 92, Total Protein 5.7 L, Albumin 2.5 L, Globulin 3.2, Albumin/Globulin Ratio 0.8 L 11/28/20 07:00: Specimen Source Right radial, O2 % 100, ABG pH 7.18 L*, ABG pCO2 45.8 H, ABG pO2 97.2, ABG HCO3 16.8 L, ABG Total CO2 18.2 L, ABG O2 Saturation 97, ABG Base Excess -11.5 L, Corey Test Patient unable, Vent Rate 22, Tidal Volume 480, PEEP 14 11/28/20 09:50: POC Glucose 578 H* 11/28/20 10:20: Random Glucose 578 H* 11/28/20 11:13: POC Glucose 575 H* 11/28/20 11:56: POC Glucose 543 H* 11/28/20 13:20: Vancomycin Trough 31.1 H Medical History: Reports:: Atrial Fibrillation, Diabetes Mellitus Type 2, Hyperlipidemia, Hypertension, Kidney Stones (2003), Tuberculosis Assessment and Plan (1) Respiratory failure Status: Acute Category: Medical Code(s): J96.90 - Respiratory failure, unspecified, unspecified whether with hypoxia or hypercapnia (2) COVID-19 Status: Acute Category: Medical Code(s): U07.1 - COVID-19 (3) Pneumonia involving right lung Status: Acute Category: Medical Code(s): J18.9 - Pneumonia, unspecified organism (4) Shortness of breath Status: Acute Category: Medical Code(s): R06.02 - Shortness of breath (5) Morbid obesity Status: Acute Category: Medical Code(s): E66.01 - Morbid (severe) obesity due to excess calories (6) Sepsis Status: Acute Category: Medical Code(s): A41.9 - Sepsis, unspecified organism (7) Atrial fibrillation with RVR Status: Acute Category: Medical Code(s): I48.91 - Unspecified atrial fibr
[2020-11-28 14:27] LABS: POC Glucose,Bedside 502 (70-110)
[2020-11-28 14:27] LABS: POC Glucose,Bedside 467 (70-110)
[2020-11-28 16:56] LABS: POC Glucose,Bedside 475 (70-110)
[2020-11-28 16:56] LABS: POC Glucose,Bedside 476 (70-110)
--- NOTE | 2020-11-28 17:05 | PC.NURSE ---
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 if the recheck at 8 showed no blood to restart at 30. however if it showed signs of bleeding to hold off on tube feeds until morning. 1600 check showed about 40ml of blood this time. hardly any secretions with suctioning. oral care provided. tolerating insulin drip and levophed drip well. versed remains at 0.08mg/kg/hr levophed is 6mcg/min fentanyl is 20mcg/hr insulin 20units/hr. lung sounds diminished. vitals stable.
--- NOTE | 2020-11-28 17:51 | PC.NURSE ---
this tech swept and mopped pt's room
[2020-11-28 18:20] LABS: POC Glucose,Bedside 430 (70-110)
[2020-11-28 18:20] LABS: POC Glucose,Bedside 380 (70-110)
[2020-11-28 20:02] LABS: POC Glucose,Bedside 324 (70-110)
[2020-11-28 20:02] LABS: POC Glucose,Bedside 350 (70-110)
[2020-11-28 21:17] LABS: POC Glucose,Bedside 305 (70-110)
--- NOTE | 2020-11-28 21:47 | PC.NURSE ---
He continues with generalized edema. Dr. Snyder aware of weight gain-it was discussed the morning of 11/28/20. He has generalized edema. BUE elevated. He bleeds at injection sites (insulin injection). He continues on insulin gtt and rate has remained at 20 units/hr. He continues to void per f/c. Urine is brownish in color. 10mL residual that was brownish red from OG. Tube feeding held per report if blood was noted in OG. His HOB elevated 30 degrees. He is being turned and repositioned and given oral care q 2 hours and PRN. His ETT was moved to the left side.
[2020-11-28 22:05] LABS: POC Glucose,Bedside 340 (70-110)
--- NOTE | 2020-11-28 23:13 | PC.NURSE ---
[facility] called and there is no bed available at this time.
[2020-11-28 23:18] LABS: POC Glucose,Bedside 297 (70-110)
[2020-11-29] VITALS (22 sets, daily range): BP systolic 97–134; BP diastolic 43–54; PULSE 71–92; RESP 23–80; TEMP 35.7–36.7; O2SAT 94–100; BMI 55.0
[2020-11-29 00:08] LABS: POC Glucose,Bedside 243 (70-110)
[2020-11-29 01:07] LABS: POC Glucose,Bedside 216 (70-110)
[2020-11-29 03:16] LABS: POC Glucose,Bedside 209 (70-110)
[2020-11-29 03:16] LABS: POC Glucose,Bedside 199 (70-110)
[2020-11-29 04:20] LABS: POC Glucose,Bedside 203 (70-110)
--- NOTE | 2020-11-29 05:00 | XR_ITS ---
PROCEDURE: XR CHEST PORTABLE CLINICAL HISTORY: Pt intubated Covid19 pneumonia follow-up COMPARISON: CR XR CHEST PORTABLE from 11/26/2020 CR XR CHEST PORTABLE from 11/27/2020 CR XR CHEST PORTABLE from 11/28/2020 FINDINGS: Endotracheal tube nasogastric tube and left subclavian central venous line in place on good position with no significant change. Endotracheal tube tip is 5 cm above the lucila. Right upper and right lower lobe pneumonia and left perihilar pneumonia once again noted unchanged. No acute bony abnormalities. IMPRESSION: Tubes and lines in good position with no change in the bilateral pneumonia. Dictated by: Corey Hdez MD 11/29/2020 06:28 Corey Hdez MD in [facility] 11/29/2020 06:28
[2020-11-29 05:14] LABS: POC Glucose,Bedside 209 (70-110)
--- NOTE | 2020-11-29 05:20 | PC.NURSE ---
He is noted to be bleeding for his IV site and site was d/c. Blood noted to be around central line site but has not increased during shift. He has started to have pinkish brown secretions from his mouth. Residual check via OG and 30mL of black colored drainage was aspirated.
--- NOTE | 2020-11-29 06:34 | PC.NURSE ---
levophed weaned to 2mcg/min at this time r/t blood pressure.
[2020-11-29 06:39] LABS: POC Glucose,Bedside 235 (70-110)
[2020-11-29 07:38] LABS: ABG Base Excess -11.4 mmol/L (-2.4-2.3); ABG HCO3 16.3 mmhg (22.0-26.0); ABG Oxygen Saturation 99 % (90-100); ABG PCO2 40.3 mmhg (35.0-45.0); ABG PH 7.22 mmol/L (7.35-7.45); ABG PO2 119.7 mmhg (80-100); ABG TCO2 17.5 mmhg (23-27)
[2020-11-29 07:49] LABS: Allen's Test ACCEPTABLE; Oxygen 100 %; PEEP 14; Source Left Radial; Tidal Volume 480; Vent Rate 24
--- NOTE | 2020-11-29 07:57 | DIET.NUTRFU ---
Pt with continued bloody aspiration from both NG and OG, with edema and 4# weight gain past 24h, improvement BG. Continue to hold tube feeds this am and increase water flushes to 250ml q 4h to meet additional fluid needs, conservative at 1500ml. Want to give pt gut rest and reassess tube function, will restart TF regimen, possibly with new formula later today pending pt's condition, continuing to monitor.
[2020-11-29 08:23] LABS: POC Glucose,Bedside 214 (70-110)
[2020-11-29 08:31] LABS: Basophils % 0.1 % (0.1-2.0); Hematocrit 27.4 % (42.0-52.0); Lymphocytes # 0.8 K/mm3 (0.7-4.5); Lymphocytes % 2.6 % (10-50); Mean Corpuscular HGB Conc 28.8 g/dL (31.8-35.4); Mean Corpuscular Hemoglobin 29.4 pg (27.0-31.2); Mean Corpuscular Volume 102.2 fl (80-94); Mean Platelet Volume 14.3 fl (7.4-10.4); Monocytes # 1.2 K/mm3 (0.1-1.0); Monocytes % 3.9 % (1.7-9.3); Neutrophils # 28.1 K/mm3 (1.8-7.8); Neutrophils % 93.5 % (37.0-80.0); Platelet Count 322 K/mm3 (142-424); Red Blood Count 2.69 M/mm3 (4.60-6.20); Red Cell Distribution Width 15.3 % (11.5-17.5); White Blood Count 30.1 K/mm3 (4.8-10.8)
[2020-11-29 08:37] LABS: Hemoglobin 7.9 g/dL (14.1-18.0)
[2020-11-29 08:38] LABS: Anion Gap 14.3 mEq/L (5-15); Calcium 7.6 mg/dl (8.4-10.2); Carbon Dioxide 20 mmol/L (22.0-30.0); Chloride 111 mmol/L (98-107); Creatinine Clearance Estimated 16 mL/min (50-200); Estimated Glomerular Filt Rate 12 ml/min (>60); GFR (African American) 14 ML/MIN (>60); Glucose 209 mg/dl (74-100); MANUAL DIFFERENTIAL MANUAL DIFFERENTIAL (MANUAL DIFF); Sodium 139 mmol/L (136-145)
[2020-11-29 08:44] LABS: Potassium 6.3 mmoL/L (3.5-5.1)
[2020-11-29 08:46] LABS: Blood Urea Nitrogen 166 mg/dl (9-20); Macrocytosis 1+; Monocytes % 4 % (2-9); Neutrophils % 96 % (42-76); Platelet Estimate Normal; RBC Morphology Normal; Total Cells Counted 100
[2020-11-29 09:33] LABS: POC Glucose,Bedside 246 (70-110)
--- NOTE | 2020-11-29 09:52 | HMH.ACPN2 ---
Internal Medicine - PN: Subj *Date: 11/29/20 *Time: 09:52 Interval history: BUN and creatinine elevated. Weight increase noted. Lovenox D/C'd dure to GI bleeding and bleeding at IV sites. No additional word on [facility] transfer. Some areas of improvement: See ABG. Might decrease FiO2. Potassium improved. Blood sugars below 300. BP better, Levophed decreased in dose. Exam Vital signs and Labs for Last 24 Hours: Temp Pulse Resp BP Pulse Ox 97.4 F L 86 24 124/47 L 100 11/29/20 09:00 11/29/20 09:00 11/29/20 09:05 11/29/20 09:00 11/29/20 09:05 Laboratory Results - last 24 hr 11/27/20 11:38: POC Glucose 571 H* 11/27/20 16:54: POC Glucose 506 H* 11/27/20 19:36: POC Glucose 517 H* 11/28/20 04:55: POC Glucose 538 H* 11/28/20 09:50: POC Glucose 578 H* 11/28/20 10:20: Random Glucose 578 H* 11/28/20 11:13: POC Glucose 575 H* 11/28/20 11:56: POC Glucose 543 H* 11/28/20 12:54: POC Glucose 502 H* 11/28/20 13:20: Vancomycin Trough 31.1 H 11/28/20 14:13: POC Glucose 467 H* 11/28/20 15:15: POC Glucose 476 H* 11/28/20 16:09: POC Glucose 475 H* 11/28/20 17:22: POC Glucose 430 H* 11/28/20 18:11: POC Glucose 380 H* 11/28/20 18:57: POC Glucose 350 H* 11/28/20 19:52: POC Glucose 324 H* 11/28/20 21:06: POC Glucose 305 H* 11/28/20 21:57: POC Glucose 340 H* 11/28/20 23:11: POC Glucose 297 H 11/28/20 23:59: POC Glucose 243 H 11/29/20 00:59: POC Glucose 216 H 11/29/20 02:15: POC Glucose 199 H 11/29/20 03:07: POC Glucose 209 H 11/29/20 04:06: POC Glucose 203 H 11/29/20 05:02: POC Glucose 209 H 11/29/20 06:32: POC Glucose 235 H 11/29/20 07:00: Specimen Source Left radial, O2 % 100, ABG pH 7.22 L*, ABG pCO2 40.3, ABG pO2 119.7 H, ABG HCO3 16.3 L, ABG Total CO2 17.5 L, ABG O2 Saturation 99, ABG Base Excess -11.4 L, Corey Test Acceptable, Vent Rate 24, Tidal Volume 480, PEEP 14 11/29/20 08:10: WBC 30.1 H*, RBC 2.69 L, Hgb 7.9 L*, Hct 27.4 L, MCV 102.2 H, MCH 29.4, MCHC 28.8 L, RDW 15.3, Plt Count 322 D, MPV 14.3 H, Neut % (Auto) 93.5 H, Lymph % (Auto) 2.6 L, [place] % (Auto) 3.9, Eos % (Auto) 0.0 L, Baso % (Auto) 0.1, Neut # (Auto) 28.1 H, Lymph # (Auto) 0.8, [place] # (Auto) 1.2 H, Eos # (Auto) 0.0, Baso # (Auto) 0.0, Total Counted 100, Neutrophils % (Manual) 96 H, Monocytes % (Manual) 4, Platelet Estimate Normal, RBC Morphology Normal, Macrocytosis 1+ 11/29/20 08:10: Sodium 139, Potassium 6.3 H*, Chloride 111 H, Carbon Dioxide 20 L, Anion Gap 14.3, BUN 166 H* D, Creatinine 5.00 H D, Estimated Creat Clear 16, Estimated GFR 12 L*, Est GFR ( Amer) 14 L* D, Glucose 209 H, Calcium 7.6 L 11/29/20 08:17: POC Glucose 214 H 11/29/20 09:02: POC Glucose 246 H Laboratory Tests 11/29/20 11/29/20 11/29/20 07:00 08:10 08:10 WBC 30.1 H* Hgb 7.9 L* ABG pH 7.22 L* ABG pCO2 40.3 ABG pO2 119.7 H ABG HCO3 16.3 L ABG O2 Saturation 99 Potassium 6.3 H* BUN 166 H* D Creatinine 5.00 H D Estimated GFR 12 L* I & O for Last 24 hours: Intake & Output 11/26/20 11/27/20 11/28/20 11/29/20 11:59 11:59 11:59 11:59 Intake Total 585.25 / 585.25 3334.5 / 3334.5 2260.958 / 2260.958 1471 / 1471 Output Total 1795 / 1805 316 / 316 841 / 841 397 / 397 Balance -1209.75 / -1219.75 3018.5 / 3018.5 1419.958 / 8160.680 1055 / 1074 Weight 349 lb 12.8 oz 376 lb 12.32 oz 380 lb 8.285 oz 384 lb 7.779 oz Microbiology Reports for the Last 24 Hours: Microbiology 11/26/20 10:40 Sputum - Endotracheal Tube Aspirate Gram Stain - Final 11/26/20 10:40 Sputum - Endotracheal Tube Aspirate Sputum Culture - Preliminary Staphylococcus schleiferi 11/23/20 11:35 Blood Blood Culture - Final NO GROWTH AFTER 5 DAYS 11/23/20 11:35 Blood Blood Culture - Final NO GROWTH AFTER 5 DAYS 11/25/20 10:40 Chest - Pulmonary - Final 11/25/20 10:40 Chest - Pulmonary Acid Fast Bacilli Smear - Final - Constitutional no acute distress ([place]
--- NOTE | 2020-11-29 09:59 | PC.NURSE ---
Per Dr. Lopez, orders received to DC levemir, zithromax and to given one time dose of 160 mg IV Lasix. FIO2 decreased to 80% @ this time.
[2020-11-29 10:13] LABS: POC Glucose,Bedside 227 (70-110)
--- NOTE | 2020-11-29 10:32 | HMH.PULMPN ---
Internal Medicine - PN: Subj *Date: 11/29/20 *Time: 10:32 Interval history: No acute respiratory events overnight. Patient renal function continued to worsen. Exam - Constitutional Constitutional:: comfortable - HENMT Exam HENMT: atraumatic - Eye Exam Eyes:: normal conjunctiva - Neck Exam Neck:: thyroid normal, no lymphadenopathy - Respiratory Exam Comments: Bilateral coarse breath sounds relatively unchanged along with decreased breath sounds in the right lower lung jung - Cardiovascular Exam Cardiac:: S1, S2 - GI Exam GI:: soft, obese - Skin Exam Skin: warm - Extremities Exam Extremities: no cyanosis, no clubbing, edema Assessment and Plan (1) Respiratory failure Status: Acute Category: Medical Code(s): J96.90 - Respiratory failure, unspecified, unspecified whether with hypoxia or hypercapnia (2) COVID-19 Status: Acute Category: Medical Code(s): U07.1 - COVID-19 (3) Pneumonia involving right lung Status: Acute Category: Medical Code(s): J18.9 - Pneumonia, unspecified organism (4) Shortness of breath Status: Acute Category: Medical Code(s): R06.02 - Shortness of breath (5) Morbid obesity Status: Acute Category: Medical Code(s): E66.01 - Morbid (severe) obesity due to excess calories (6) Sepsis Status: Acute Category: Medical Code(s): A41.9 - Sepsis, unspecified organism (7) Atrial fibrillation with RVR Status: Acute Category: Medical Code(s): I48.91 - Unspecified atrial fibrillation (8) Acute renal failure Status: Acute Category: Medical Code(s): N17.9 - Acute kidney failure, unspecified (9) Edema of lower extremity Status: Acute Category: Medical Code(s): R60.0 - Localized edema (10) History of tuberculosis Status: Acute Category: Medical Code(s): Z86.11 - Personal history of tuberculosis (11) HTN (hypertension) Status: Chronic Category: Medical Code(s): I10 - Essential (primary) hypertension (12) HLD (hyperlipidemia) Status: Chronic Category: Medical Code(s): E78.5 - Hyperlipidemia, unspecified (13) Hypoxemia Status: Acute Category: Medical Code(s): R09.02 - Hypoxemia (14) CKD (chronic kidney disease) stage 3, GFR 30-59 ml/min Status: Acute Category: Medical Code(s): N18.30 - Chronic kidney disease, stage 3 unspecified (15) Hyperkalemia Status: Acute Category: Medical Code(s): E87.5 - Hyperkalemia (16) Elevated troponin Status: Acute Category: Medical Code(s): R77.8 - Other specified abnormalities of plasma proteins - Assessment and plan all Dx Assessment and Plan for all problems:: #Acute hypoxic respiratory failure needing mechanical ventilation: #COVID-19 pneumonia: 60-year-old history of diabetes no prior respiratory complaints recent diagnosis cholecystectomy levofloxacin outpatient basis pending worsening respiratory failure cough and productive phlegm along with hypoxic respiratory failure needing high flow nasal cannula, respiratory status gradually worsening eventually needing intubation and mechanical ventilation on April 25, 2021. Patient on admission was initiated on ceftriaxone and azithromycin, antibiotics were escalated to vancomycin and cefepime Interval update: Patient respiratory status remained stable, slight improvement in his ABG with a PO2 of 119.7 this morning. FiO2 decreased to 80%. Chest x-ray evidence of volume overload and bilateral pulmonary infiltrates with dense consolidation in the right lower lung lobe. Patient continued to have metabolic acidosis with worsening renal function and hyperkalemia. Urine output minimal. Patient hemodynamically unstable and with shock, on norepinephrine at 2 mcg. Cardizem changed to esmolol for his atrial fibrillation. Sputum cultures growing Staphylococcus resistant to methicillin. Plan: - Continue vancomycin and cefepime for a total of 7 days, discontinue azithromycin - Pressor support to maintain a map goa
--- NOTE | 2020-11-29 10:51 | ECG_ITS ---
APPROVED REPORT Exam: Resting ECG HR:88 bpm ECG Measurements Heart Rate 88 AXES SC 130 P 49 QRSd 132 QRS -12 QT 360 T -2 QTc 435 Conclusion Normal sinus rhythm Right bundle branch block Abnormal ECG Electronically signed by : Finn Nagel, 11/29/2020 19:36:31
--- NOTE | 2020-11-29 11:10 | HMH.PNCARD ---
Subjective Date: 11/29/20 Time: 11:10 Principal diagnosis: COVID pneumonia, A. fib with RVR Interval history: 60-year-old white male remains sedated, intubated on mechanical ventilation in the ICU. Patient's renal function continues to rise with minimal urine output. Per nursing, Dr. Lopez has ordered a one-time dose of Lasix 160 mg this AM to see if he responds. Patient's potassium peaked at 7.2 over the weekend which is being treated with Kayexalate and is down to 6.3 this morning. Bleeding noted from IV sites and access sites. Lovenox stopped over the weekend. Hemoglobin this morning 7.9, question partly dilutional. Patient remains on Levophed at 2 mcg. Systolic pressure is above 110. Attempts to wean Levophed will begin again. Patient is off of diltiazem and esmolol drips and maintaining heart rate in the 80s. EKG today is pending. Discussion of transfer to has been undertaken over the weekend. Exam Vital signs and Labs for Last 24 Hours: Temp Pulse Resp BP Pulse Ox 97.4 F L 86 24 130/50 L 94 L 11/29/20 11:00 11/29/20 11:00 11/29/20 11:00 11/29/20 11:00 11/29/20 11:00 Laboratory Results - last 24 hr 11/27/20 11:38: POC Glucose 571 H* 11/27/20 16:54: POC Glucose 506 H* 11/27/20 19:36: POC Glucose 517 H* 11/28/20 04:55: POC Glucose 538 H* 11/28/20 09:50: POC Glucose 578 H* 11/28/20 11:13: POC Glucose 575 H* 11/28/20 11:56: POC Glucose 543 H* 11/28/20 12:54: POC Glucose 502 H* 11/28/20 13:20: Vancomycin Trough 31.1 H 11/28/20 14:13: POC Glucose 467 H* 11/28/20 15:15: POC Glucose 476 H* 11/28/20 16:09: POC Glucose 475 H* 11/28/20 17:22: POC Glucose 430 H* 11/28/20 18:11: POC Glucose 380 H* 11/28/20 18:57: POC Glucose 350 H* 11/28/20 19:52: POC Glucose 324 H* 11/28/20 21:06: POC Glucose 305 H* 11/28/20 21:57: POC Glucose 340 H* 11/28/20 23:11: POC Glucose 297 H 11/28/20 23:59: POC Glucose 243 H 11/29/20 00:59: POC Glucose 216 H 11/29/20 02:15: POC Glucose 199 H 11/29/20 03:07: POC Glucose 209 H 11/29/20 04:06: POC Glucose 203 H 11/29/20 05:02: POC Glucose 209 H 11/29/20 06:32: POC Glucose 235 H 11/29/20 07:00: Specimen Source Left radial, O2 % 100, ABG pH 7.22 L*, ABG pCO2 40.3, ABG pO2 119.7 H, ABG HCO3 16.3 L, ABG Total CO2 17.5 L, ABG O2 Saturation 99, ABG Base Excess -11.4 L, Corey Test Acceptable, Vent Rate 24, Tidal Volume 480, PEEP 14 11/29/20 08:10: WBC 30.1 H*, RBC 2.69 L, Hgb 7.9 L*, Hct 27.4 L, MCV 102.2 H, MCH 29.4, MCHC 28.8 L, RDW 15.3, Plt Count 322 D, MPV 14.3 H, Neut % (Auto) 93.5 H, Lymph % (Auto) 2.6 L, [place] % (Auto) 3.9, Eos % (Auto) 0.0 L, Baso % (Auto) 0.1, Neut # (Auto) 28.1 H, Lymph # (Auto) 0.8, [place] # (Auto) 1.2 H, Eos # (Auto) 0.0, Baso # (Auto) 0.0, Total Counted 100, Neutrophils % (Manual) 96 H, Monocytes % (Manual) 4, Platelet Estimate Normal, RBC Morphology Normal, Macrocytosis 1+ 11/29/20 08:10: Sodium 139, Potassium 6.3 H*, Chloride 111 H, Carbon Dioxide 20 L, Anion Gap 14.3, BUN 166 H* D, Creatinine 5.00 H D, Estimated Creat Clear 16, Estimated GFR 12 L*, Est GFR ( Amer) 14 L* D, Glucose 209 H, Calcium 7.6 L 11/29/20 08:17: POC Glucose 214 H 11/29/20 09:02: POC Glucose 246 H 11/29/20 10:06: POC Glucose 227 H I & O for Last 24 hours: Intake & Output 11/26/20 11/27/20 11/28/20 11/29/20 11:59 11:59 11:59 11:59 Intake Total 585.25 / 585.25 3334.5 / 3334.5 2260.958 / 2260.958 1471 / 1471 Output Total 1795 / 1805 316 / 316 841 / 841 397 / 397 Balance -1209.75 / -1219.75 3018.5 / 3018.5 1419.958 / 4232.039 1021 / 1074 Weight 349 lb 12.8 oz 376 lb 12.32 oz 380 lb 8.285 oz 384 lb 7.779 oz Microbiology Reports for the Last 24 Hours: Microbiology 11/26/20 10:40 Sputum - Endotracheal Tube Aspirate Gram Stain - Final 11/26/20 10:40 Sputum - Endotracheal Tube Aspirate Sputum Culture - Preliminary Staphylococcus schleiferi 11/23/20 11:35 Blood Blood Culture - Final NO GROWTH AFTER 5 DAYS 11/23/20 11:35 Blood
[2020-11-29 11:12] LABS: POC Glucose,Bedside 226 (70-110)
--- NOTE | 2020-11-29 12:06 | PC.NURSE ---
Received call from that pt has been @ this time. Bed assignment: [facility] [address] Floor Rm#[id number]. Report to be called to [phone]. Dr. Snyder made aware of bed and transfer @ 2900. Prefers pt to be flown if able, if not to be taken by ground, ACLS.
[2020-11-29 12:40] LABS: POC Glucose,Bedside 243 (70-110)
--- NOTE | 2020-11-29 12:46 | PC.NURSE ---
Levo gtt off @ 1130 - BP remains stable.
[2020-11-29 14:35] LABS: Vancomycin,Trough 24.3 ug/mL (5.0-10.0)
--- NOTE | 2020-11-29 14:41 | HMH.PHACONS ---
- Pharmacy Consult Date: 11/29/20 Time: 14:41 Referring provider: DR. BAEZ Reason for Consult:: VANCOMYCIN LEVEL Allergies and ADEs:: Allergies Allergy/AdvReac Type Severity Reaction Status Date / Time No Known Allergies Allergy Verified 09/22/20 08:59 Home Medications:: Home Medications Medication Instructions Recorded Confirmed Type atorvastatin 80 mg tablet 80 mg PO HS 90 Days tab 06/20/18 11/24/20 History ezetimibe 10 mg tablet 10 mg PO DAILY 90 Days tab 06/20/18 11/23/20 History glimepiride 4 mg tablet 4 mg PO DAILY 90 Days tab 06/20/18 11/24/20 History hydrochlorothiazide 12.5 mg tablet 12.5 mg PO DAILY 30 Days tab 06/20/18 11/23/20 History metformin 1,000 mg tablet 1,000 mg PO BID 90 Days tab 06/20/18 11/24/20 History metolazone 2.5 mg tablet 2.5 mg PO Q48H 30 Days #15 tab 06/20/18 11/24/20 History quinapril 40 mg tablet 40 mg PO DAILY 90 Days tab 06/20/18 11/23/20 History tamsulosin 0.4 mg capsule 0.4 mg PO DAILY 90 Days #90 06/20/18 11/23/20 History aspirin 81 mg tablet,delayed 81 mg PO DAILY 10/16/18 11/23/20 History release dulaglutide 1.5 mg/0.5 mL 1.5 mg SQ WEEKLY 90 Days ml 04/01/20 11/24/20 History subcutaneous pen injector fluticasone propionate 50 1 spray NS DAILY 04/01/20 11/24/20 History mcg/actuation nasal spray,suspension insulin detemir U-100 100 unit/mL 55 unit SQ DAILY 89 Days ml 04/01/20 11/24/20 History (3 mL) subcutaneous pen albuterol sulfate 90 mcg/actuation 2 puffs IH Q6HP PRN 06/23/20 11/24/20 History aerosol inhaler terbinafine HCL [Terbinafine HCl] 250 mg PO DAILY 11/17/20 11/23/20 History Naproxen [Naproxen 500mg tab] 500 mg PO BID 11/23/20 11/23/20 History dexAMETHasone [Decadron] 6 mg PO DAILY 11/23/20 11/23/20 History Pioglitazone HCl [Actos] 45 mg PO DAILY 11/24/20 11/24/20 History Height: 1.78 m Weight: 174.4 kg Laboratory Results:: Laboratory Results - last 24 hr 11/28/20 15:15: POC Glucose 476 H* 11/28/20 16:09: POC Glucose 475 H* 11/28/20 17:22: POC Glucose 430 H* 11/28/20 18:11: POC Glucose 380 H* 11/28/20 18:57: POC Glucose 350 H* 11/28/20 19:52: POC Glucose 324 H* 11/28/20 21:06: POC Glucose 305 H* 11/28/20 21:57: POC Glucose 340 H* 11/28/20 23:11: POC Glucose 297 H 11/28/20 23:59: POC Glucose 243 H 11/29/20 00:59: POC Glucose 216 H 11/29/20 02:15: POC Glucose 199 H 11/29/20 03:07: POC Glucose 209 H 11/29/20 04:06: POC Glucose 203 H 11/29/20 05:02: POC Glucose 209 H 11/29/20 06:32: POC Glucose 235 H 11/29/20 07:00: Specimen Source Left radial, O2 % 100, ABG pH 7.22 L*, ABG pCO2 40.3, ABG pO2 119.7 H, ABG HCO3 16.3 L, ABG Total CO2 17.5 L, ABG O2 Saturation 99, ABG Base Excess -11.4 L, Corey Test Acceptable, Vent Rate 24, Tidal Volume 480, PEEP 14 11/29/20 08:10: WBC 30.1 H*, RBC 2.69 L, Hgb 7.9 L*, Hct 27.4 L, MCV 102.2 H, MCH 29.4, MCHC 28.8 L, RDW 15.3, Plt Count 322 D, MPV 14.3 H, Neut % (Auto) 93.5 H, Lymph % (Auto) 2.6 L, [place] % (Auto) 3.9, Eos % (Auto) 0.0 L, Baso % (Auto) 0.1, Neut # (Auto) 28.1 H, Lymph # (Auto) 0.8, [place] # (Auto) 1.2 H, Eos # (Auto) 0.0, Baso # (Auto) 0.0, Total Counted 100, Neutrophils % (Manual) 96 H, Monocytes % (Manual) 4, Platelet Estimate Normal, RBC Morphology Normal, Macrocytosis 1+ 11/29/20 08:10: Sodium 139, Potassium 6.3 H*, Chloride 111 H, Carbon Dioxide 20 L, Anion Gap 14.3, BUN 166 H* D, Creatinine 5.00 H D, Estimated Creat Clear 16, Estimated GFR 12 L*, Est GFR ( Amer) 14 L* D, Glucose 209 H, Calcium 7.6 L 11/29/20 08:17: POC Glucose 214 H 11/29/20 09:02: POC Glucose 246 H 11/29/20 10:06: POC Glucose 227 H 11/29/20 11:04: POC Glucose 226 H 11/29/20 12:23: Vancomycin Trough 24.3 H 11/29/20 12:34: POC Glucose 243 H Medical History: Reports:: Atrial Fibrillation, Diabetes Mellitus Type 2, Hyperlipidemia, Hypertension, Kidney Stones (2003), Tuberculosis Assessment and Plan (1) Respiratory failure Status: Acute Category: Medical Code(s): J96.90 - Respiratory failure, unspecified, unspecified
--- NOTE | 2020-11-29 15:36 | PC.NURSE ---
1338 - REPORT CALLED TO ALY KHAN @ [facility]. 1352 - [facility] METHODS MADE AWARE OF TRANSFER 1358 - [facility] ACCEPTED TRANSFER. 1420 - SPOKE TO FAMILY, UPDATED ON POC AT THIS TIME. 1450 - [facility] HERE @ THIS TIME. PT TRANSFERRED ON: INSULIN GTT @ 4 UNITS/HR ESMOLOL GTT @ 25 MCG/KG/MIN FENTANYL AND VERSED GTT DC'D PRIOR TO TRANSFER, AIR METHODS TO GIVE MEDS FOR SEDATION 1520 - PT LEFT UNIT @ THIS TIME W/ AIR METHODS.
--- NOTE | 2020-12-05 15:50 | HMH.DCSUM ---
General - General Admission date:: 11/23/20 Discharge date: 11/29/20 HPI HPI: This 60-year-old white male diabetic was brought to the emergency room after a syncopal episode. He was seen in the office of [facility] on November 15, 2020 and tested positive for COVID-19. He received dexamethasone and Levaquin. He also received Bamlanivimab by infusion as an outpatient. He has continued to be symptomatic with cough congestion and shortness of breath. The following was from the emergency room narrative: Patient is brought in by ambulance. They were called because he fell and needed assistance. He initially refused to be brought in, but was found to be markedly hypoxic and cyanotic on room air with a pulse ox in the 60s. He also reports to me that he might have been syncopal when he fell. He says he blacked out . He denies any injury. He was placed on nonrebreather oxygen and color improved. Also noted that he is a type II diabetic and takes Actos 45 mg daily, Glucophage at 1000 mg twice daily, Amaryl 4 mg daily, Levemir FlexPen 40 units subcu once daily, and Trulicity 0.75 mg subcutaneously once a week. Hospital Course Hospital Course: On admission patient was placed on dexamethasone, Levaquin, remdesivir, and routine Covid medications. He was initially on Vapotherm at 100% and was seen by pulmonology who follow him throughout his stay. Dr. Gordon, terrazzo tile maker, did explain to the patient his critical condition. Ceftriaxone was changed to cefepime along with continued azithromycin. He was also on duo nebs every 6 hours. Patient did go into atrial fibrillation with an RVR. and Cardiology was consulted. Patient was then started on a diltiazem drip to keep heart rate less than 100 As well as Lovenox. Cardiology also followed pt throughout his stay. Patient did convert to sinus rhythm and continued on p.o. diltiazem. The gtt was restarted after heart rate went up to 200/min. O2 sats on this date, 11/25/2020, dropped into the 70s with an accelerated heart rate up to 200. Patient was intubated and placed on the ventilator. Family was kept informed of his dire condition. Ventilator was managed by pulmonology. Heart rate continued to be elevated despite Cardizem drip. Esmolol drip was added. Patient noted to be in a metabolic acidosis which did improve somewhat with decrease in heart rate. Patient did develop a fever noted on 11/26/2020. Chest x-ray showed slight worsening of his pneumonia. MRSA nasal swab was positive and vancomycin was added to his antibiotic regime. At this time he was maintaining his urinary output. Renal function showed a BUN of 69 and creatinine 1.8. Pulmonology noted stable respiratory status on high vent settings with worsening renal function. Patient did require central venous catheter for IV meds and fluids. He received sedation with Fentanyl and Versed gtts. Patient on 11/27/2019 noted to have some hypotension. He was started on a norepinephrine gtt. At this time he was off carvedilol and esmolol. Lisinopril was discontinued. He remained in metabolic acidosis. BUN on this date was 101 with a creatinine of 3.7 and GFR 17. Ppotassium was elevated and he was given Kayexalate. Renal function continued to deteriorate. He was given 120 mg of IV Lasix. 11/28/2019 renal function deteriorated significantly. Respiratory status was slightly better with Chest x-ray showing some improvement. Dr. Snyder continued to keep the family informed. He discussed transfer for the purpose of dialysis. At this time Dr. Snyder contacted [facility] and spoke with Dr. Wong who accepted the patient but no beds were available at this time. Patient was placed on a waiting list. Insulin drip had been started. 11/29/2020 [facility] had a bed available and patient was transferred to their facility. BUN and creatinine had continued to elevate. On this date sodium was 139 with a potassium of 6. B
== END 2020-11-29 15:20 | disposition short-term general hospital (02) | DRG 207 ==
LOC: ER 11:59 → 2ND 13:06 → ICU 17:35
PROVIDERS: Internal Medicine Pulmonary Disease; Nurse Practitioner Family; Admitting Provider Family Medicine; Emergency Provider Emergency Medicine; PCP Family Medicine; Visit Provider Family Medicine
DX: U07.1 COVID-19 (principal); J96.01 Acute respiratory failure with hypoxia; J18.9 Pneumonia, unspecified organism; A41.9 Sepsis, unspecified organism; Z68.43 Body mass index [BMI] 50.0-59.9, adult; E11.22 Type 2 diabetes mellitus with diabetic chronic kidney disease; N18.30 Chronic kidney disease, stage 3 unspecified; I12.9 Hypertensive chronic kidney disease with stage 1 through stage 4 chronic kidney disease, or unspecified chronic kidney disease; Z86.11 Personal history of tuberculosis; E87.5 Hyperkalemia; Z79.4 Long term (current) use of insulin; Z79.82 Long term (current) use of aspirin; Z79.51 Long term (current) use of inhaled steroids; Z82.49 Family history of ischemic heart disease and other diseases of the circulatory system; I48.91 Unspecified atrial fibrillation; E66.01 Morbid (severe) obesity due to excess calories; Z79.899 Other long term (current) drug therapy
CPT/HCPCS: 36556; 36415; 71045; 80048; 80053; 80061; 80202; 81001; 82009; 82550; 82553; 82803; 82947; 82962; 83605; 83735; 84132; 84145; 84439; 84443; 84484; 85007; 85025; 87040; 87070; 87077; 87081; 87116; 87186; 87205; 87206; 93005; 93306; 94002; 94003; 94640; 94760; 94761; 96365; 96367; 99285; C1751; J0456; J3370